=== PATIENT | female | born 1995 | race Caucasian/White ===

== ENCOUNTER → 2017-11-18 12:38 | Outpatient (CLI) | payer MEDICAID, SELFPAY ==
[2017-11-18 12:56] LABS: HCT 38.5 % (36.0-46.0); HGB 12.6 g/dL (12.0-15.5); Mean Corp. HGB Concentration 32.7 g/dL (32.0-36.0); Mean Corpuscular Hemoglobin 29.9 pg (27.0-33.0); Mean Corpuscular Volume 91.4 fL (80-95); Mean Platelet Volume 9.8 fL (8.0-11.0); Platelet Count 276 x1000/uL (130-400); RBC 4.21 m/cumm (4.00-5.20); RBC Distribution Width 12.5 % (11.7-14.6); White Blood Cell Count 9.45 k/cumm (4.4-10.8)
[2017-11-18 14:09] LABS: ALT 25 U/L (12-78); AST 18 U/L (15-37); Alkaline Phosphatase 88 U/L (46-116); Anion Gap 8.5 mmol/L (3-11); BUN 9 mg/dL (7-18); Bilirubin, Total 0.4 mg/dL (0.2-1.0); CO2 28.5 mmol/L (21.0-32.0); Calcium 9.4 mg/dL (8.5-10.1); Chloride 104 mmol/L (98-107); Glucose 93 mg/dL (70-100); Potassium 3.8 mmol/L (3.5-5.1); Sodium 141 mmol/L (136-145); TSH (W/Ref FT4) 1.33 uIU/mL (0.358-3.74); Total Protein 7.7 g/dL (6.4-8.2)
[2017-11-18 14:52] LABS: Hemoglobin A1C 5.5 % (4.5-6.2)
== END ==
PROVIDERS: PCP Specialist/Technologist Athletic Trainer; Visit Provider Nurse Practitioner Family
DX: E16.2 Hypoglycemia, unspecified (principal); R53.83 Other fatigue; E03.9 Hypothyroidism, unspecified
CPT/HCPCS: 36415; 80053; 85027; 83036; 84443

== ENCOUNTER 2017-11-26 01:03 | Outpatient (CLI) | payer MEDICAID, SELFPAY ==
--- NOTE | 2017-11-26 10:35 | DI.MRI_ITS ---
SYMPTOMS/DIAGNOSIS: SEIZURE DISORDER, R56.9, DIZZINESS, R42 MRI OF THE BRAIN: MRI of the brain was performed according to the seizure protocol. The examination was conducted according to the usual protocol. Review of the multi planar sequences reveals no signal abnormality involving the infra/ supratentorial portions of the brain. The ventricles are normal and a normal flow void is noted in the carotid vessels. SUMMARY: Normal Brain MRI.
== END 2017-11-26 01:23 ==
PROVIDERS: PCP Specialist/Technologist Athletic Trainer; Visit Provider Nurse Practitioner Family
DX: R56.9 Unspecified convulsions (principal); R42 Dizziness and giddiness
CPT/HCPCS: 70551

== ENCOUNTER 2017-12-02 12:14 | Outpatient (REF) | payer MEDICAID, SELFPAY ==
[2017-12-02 22:20] LABS: Vitamin B12 641 pg/mL (193-986)
== END 2017-12-02 12:34 ==
LOC: NCHCN 12:14
PROVIDERS: PCP Specialist/Technologist Athletic Trainer; Visit Provider Nurse Practitioner Family
DX: R20.2 Paresthesia of skin (principal); M54.5 Low back pain; R42 Dizziness and giddiness; R56.9 Unspecified convulsions
CPT/HCPCS: 82607

== ENCOUNTER 2017-12-25 09:36 | Emergency (ER) | payer MEDICAID, SELFPAY ==
[2017-12-25 09:38] VITALS: BP 136/66; PULSE 106; RESP 18; TEMP 37; O2SAT 98
--- NOTE | 2017-12-25 09:55 | W.ED.GENAD ---
Discharge Plan Disposition Patient Disposition: HOME Condition: Good Discharge Details Chief Complaint: Seizure Clinical Impression: Seizure Primary Care Provider: Stalin Newell ED Provider: Juice Munoz Home Meds and New Rx's Prescriptions: No Action gabapentin 300 mg Capsule 1 cap PO TID RF: 0 Discharge Instructions Instructions: Recurrent Seizures in Adults (ED) Additional Instructions: Please follow-up with your neurologist as soon as possible. If you notice any worsening of your symptoms, or any new symptoms such as vomiting, diarrhea, fever, chills, shortness of breath, chest pain, numbness, weakness, or fainting , please return immediately to the emergency department for reevaluation. Please follow up with your primary care provider as soon as possible for reassessment and reevaluation. As always, it was a pleasure participating in your medical care today. You should not drive, operate machinery, climb heights (such as a ladder), swim, or bathe alone or do anything else which could be dangerous if you would have another seizure. Please abide by this for the next 6 months or until cleared by a physician. Referrals: Leann Lester MD [ [facility] STAFF PHYSICIAN] - Medical Decision Making This is a pleasant 21-year-old female with a past medical history of seizures for which she takes gabapentin. She presents today for seizure. It was similar to her previous seizures. No other red flags of recent infection, trauma, alcohol, or other abnormalities. She states she does feel slightly sleepier than normal. She does appear dry on physical exam with dry mucous membranes. We will give 1 L of normal saline, evaluate for any significant electrolyte abnormality. I feel she will be safe for discharge pending laboratory workup. 11:30 AM Patient's laboratory workup has returned relatively benign. No significant abnormalities. Patient has completely returned to her normal neurologic baseline and demonstrates no acute neurologic deficits. I feel that her seizure was a simple seizure similar to her regular ones. She is feeling better after the rehydration. I feel she can be safely discharged home with close follow-up with her neurologist. I have extensively reviewed the treatment plan and discharge instructions with the patient. I have addressed all patient concerns at this time. The patient was made aware of what symptoms to monitor for that would warrant a return to the emergency department. Discussed the plan with the patient, they demonstrate verbal understanding and agreement with our assessment and plan at this time. HPI General Date/Time Provider Initiated Documentation: 12/25/17 09:52. HPI Narrative: This is a 21-year-old female with a past medical history of seizures and rheumatoid arthritis and lupus who takes gabapentin for her seizures. She presents today for evaluation of seizure. She has seizures once every few weeks to once every month. She sees Dr. Uribe. She states that less than 1 hour prior to arrival she had a seizure that lasted 3.5 minutes. She did not hit her head, she did not suffer any trauma. 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 She had no bowel or bladder incontinence. She denies any headache, chest pain or abdominal pain. She has not missed any doses of gabapentin she denies any symptoms of fever, chills, cough, shortness of breath, hematuria or dysuria or fever or chills. She states that the seizure was normal in nature to what she classically experiences. However she does feel slightly sleepier than normal. Patient denies any other medical complaints. She denies any recent alcohol use or medication changes. She has no other complaints at this time. She denies any recent pertinent surgeries. She does not take control. She denies any IV or illicit drug use or pertinent family history. Related Data Home Medications Medication Instructions Recorded Confirmed gabapentin 1 cap PO TID 12/25/17 12/25/17 Allergies Allergy/AdvReac Type Severity Reaction Status Date / Time aspirin Allergy Severe Anaphylaxsi Unverified 12/25/17 09:41 s Penicillins Allergy Severe Unverified 12/25/17 09:41 lamotrigine [From Lamictal] Allergy Intermediate Unverified 12/25/17 09:41 General Stated Complaint: Seizure MENDY: 3 Review of Systems Review of Systems All systems reviewed & are unremarkable except as noted in HPI and below PFSH Family History Other Bladder cancer Cervical cancer Diabetes Ovarian cancer Seizure Medical History Asperger's disorder Epilepsy Hypoglycemia Hypothyroidism Lesion of brain Memory impairment Seizure Social History Smoking/Tobacco Use Status: Never Surgical History section Exam Narrative Exam Narrative: 1.Const: Well-nourished, Well-developed, appearing stated age 2.Eyes: PERRL, no conjunctival injection, and symmetrical lids. 3.ENT: Atraumatic external nose and ears. Dry MM. Neck: Symmetric, trachea midline, No thyromegaly. There is no evidence of raccoon eyes, gil sign, CSF rhinorrhea, mastoid tenderness, cranial crepitus, hemotympanum, exophthalmos, or hyphema. Patient demonstrates intact dentition with no signs of tooth avulsion or fracture, no signs of jaw deformity, no evidence of a LeFort's fracture, with an intact palate, nose and orbital region. There is no evidence of a nasal septal hematoma. No proptosis. Jaw closes symmetrically. Airway is clear. Patient demonstrates good movement of cervical neck. There is no nuchal rigidity, no nuchal tenderness. Patient is able to flex the neck without any difficulty or significant pain. Negative Kernig's and Brudzinski sign. 4.CVS: +S1/S2, No murmurs or gallops. Peripheral pulses 2+ and equal in all extremities. Brisk capillary refill in all extremities. 5.RESP: Unlabored respiratory effort. Clear to auscultation bilaterally. No wheezes rales or rhonchi 6.GI: Soft, Nontender/Nondistended, No hepatosplenomegaly. No guarding or rebound. 7.MSK: Normocephalic/Atraumatic, Extremities w/o deformity or ttp No cyanosis or clubbing, Normal movement of all extremities 8.Skin: Warm, Dry. No rashes or lesions. 9.Neuro: jig inspector II-XII grossly intact. Sensation grossly intact, no focal neurologic deficits. All 6 cardinal planes of vision or fully intact. No evidence of rotatory or vertical nystagmus. The patient demonstrated a normal ofgjkg-ypqp-tcxxni, good dexterity. There was no evidence of dysdiadochokinesia. Patient was able to ambulate without difficulty. There was no wide-based gait. Romberg, and embj-wz-guls are both normal on testing. Sensation was intact bilaterally as well as muscle strength bilaterally for all extremities. Patient was able to verbalize butter cup with no slurring, or miss pronunciation. 10.Psych: (AAO) x3. Appropriate mood and affect Course Vital Signs Temperature 37.0 C 12/25/17 09:38 Pulse 106 H 12/25/17 09:38 Respiratory Rate 18 12/25/17 09:38 Blood Pressure 136/66 12/25/17 09:38 Pulse Oximetry 98 12/25/17 09:38 Temperature 37.0 C 12/25/17 09:38 Temperature Source Temporal Artery Scan 12/25/17 09:38 Pulse 106 H 12/25/17 09:38 Respiratory Rate 18 12/25/17 09:38 Blood Pressure 136/66 12/25/17 09:38 Pulse Oximetry 98 12/25/17 09:38 Oxygen Delivery Method Room Air 12/25/17 09:38 Oxygen Flow Rate 0 12/25/17 09:38 Pain Level 0 12/25/17 09:38
--- NOTE | 2017-12-25 10:01 | ED.GENADUL_ITS ---
Discharge Plan Disposition Patient Disposition: HOME Condition: Good Discharge Details Chief Complaint: Seizure Clinical Impression: Seizure Primary Care Provider: Stalin Newell ED Provider: Juice Munoz Home Meds and New Rx's Prescriptions: No Action gabapentin 300 mg Capsule 1 cap PO TID RF: 0 Discharge Instructions Instructions: Recurrent Seizures in Adults (ED) Additional Instructions: Please follow-up with your neurologist as soon as possible. If you notice any worsening of your symptoms, or any new symptoms such as vomiting, diarrhea, fever, chills, shortness of breath, chest pain, numbness, weakness, or fainting , please return immediately to the emergency department for reevaluation. Please follow up with your primary care provider as soon as possible for reassessment and reevaluation. As always, it was a pleasure participating in your medical care today. You should not drive, operate machinery, climb heights (such as a ladder), swim , or bathe alone or do anything else which could be dangerous if you would have another seizure. Please abide by this for the next 6 months or until cleared by a physician. Referrals: Leann Lester MD [ [facility] STAFF PHYSICIAN] - Medical Decision Making This is a pleasant 21-year-old female with a past medical history of seizures for which she takes gabapentin. She presents today for seizure. It was similar to her previous seizures. No other red flags of recent infection, trauma, alcohol, or other abnormalities. She states she does feel slightly sleepier than normal. She does appear dry on physical exam with dry mucous membranes. We will give 1 L of normal saline, evaluate for any significant electrolyte abnormality. I feel she will be safe for discharge pending laboratory workup. 11:30 AM Patient's laboratory workup has returned relatively benign. No significant abnormalities. Patient has completely returned to her normal neurologic baseline and demonstrates no acute neurologic deficits. I feel that her seizure was a simple seizure similar to her regular ones. She is feeling better after the rehydration. I feel she can be safely discharged home with close follow-up with her neurologist. I have extensively reviewed the treatment plan and discharge instructions with the patient. I have addressed all patient concerns at this time. The patient was made aware of what symptoms to monitor for that would warrant a return to the emergency department. Discussed the plan with the patient, they demonstrate verbal understanding and agreement with our assessment and plan at this time. HPI General Date/Time Provider Initiated Documentation: 12/25/17 09:52 . HPI Narrative: This is a 21-year-old female with a past medical history of seizures and rheumatoid arthritis and lupus who takes gabapentin for her seizures. She presents today for evaluation of seizure. She has seizures once every few weeks to once every month. She sees Dr. Uribe. She states that less than 1 hour prior to arrival she had a seizure that lasted 3.5 minutes. She did not hit her head, she did not suffer any trauma. 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 She had no bowel or bladder incontinence. She denies any headache, chest pain or abdominal pain. She has not missed any doses of gabapentin she denies any symptoms of fever, chills, cough, shortness of breath, hematuria or dysuria or fever or chills. She states that the seizure was normal in nature to what she classically experiences. However she does feel slightly sleepier than normal. Patient denies any other medical complaints. She denies any recent alcohol use or medication changes. She has no other complaints at this time. She denies any recent pertinent surgeries. She does not take control. She denies any IV or illicit drug use or pertinent family history. Related Data Home Medications Medication Instructions Recorded Confirmed gabapentin 1 cap PO TID 12/25/17 12/25/17 Allergies Allergy/AdvReac Type Severity Reaction Status Date / Time aspirin Allergy Severe Anaphylaxsi Unverified 12/25/17 09:41 s Penicillins Allergy Severe Unverified 12/25/17 09:41 lamotrigine [From Lamictal] Allergy Intermediate Unverified 12/25/17 09:41 General Stated Complaint: Seizure MENDY: 3 Review of Systems Review of Systems All systems reviewed & are unremarkable except as noted in HPI and below PFSH Family History Other Bladder cancer Cervical cancer Diabetes Ovarian cancer Seizure Medical History Asperger's disorder Epilepsy Hypoglycemia Hypothyroidism Lesion of brain Memory impairment Seizure Social History Smoking/Tobacco Use Status: Never Surgical History section Exam Narrative Exam Narrative: 1.Const: Well-nourished, Well-developed, appearing stated age 2.Eyes: PERRL, no conjunctival injection, and symmetrical lids. 3.ENT: Atraumatic external nose and ears. Dry MM. Neck: Symmetric, trachea midline, No thyromegaly. There is no evidence of raccoon eyes, gil sign, CSF rhinorrhea, mastoid tenderness, cranial crepitus, hemotympanum, exophthalmos , or hyphema. Patient demonstrates intact dentition with no signs of tooth avulsion or fracture, no signs of jaw deformity, no evidence of a LeFort's fracture, with an intact palate, nose and orbital region. There is no evidence of a nasal septal hematoma. No proptosis. Jaw closes symmetrically. Airway is clear. Patient demonstrates good movement of cervical neck. There is no nuchal rigidity, no nuchal tenderness. Patient is able to flex the neck without any difficulty or significant pain. Negative Kernig's and Brudzinski sign. 4.CVS: +S1/S2, No murmurs or gallops. Peripheral pulses 2+ and equal in all extremities. Brisk capillary refill in all extremities. 5.RESP: Unlabored respiratory effort. Clear to auscultation bilaterally. No wheezes rales or rhonchi 6.GI: Soft, Nontender/Nondistended, No hepatosplenomegaly. No guarding or rebound. 7.MSK: Normocephalic/Atraumatic, Extremities w/o deformity or ttp No cyanosis or clubbing, Normal movement of all extremities 8.Skin: Warm, Dry. No rashes or lesions. 9.Neuro: audit specialist II-XII grossly intact. Sensation grossly intact, no focal neurologic deficits. All 6 cardinal planes of vision or fully intact. No evidence of rotatory or vertical nystagmus. The patient demonstrated a normal tydbhp-fgja-yrrocd, good dexterity. There was no evidence of dysdiadochokinesia. Patient was able to ambulate without difficulty. There was no wide-based gait. Romberg, and vvzs-xx-ncax are both normal on testing. Sensation was intact bilaterally as well as muscle strength bilaterally for all extremities. Patient was able to verbalize butter cup with no slurring, or miss pronunciation. 10.Psych: (AAO) x3. Appropriate mood and affect Course Vital Signs Temperature 37.0 C 12/25/17 09:38 Pulse 106 H 12/25/17 09:38 Respiratory Rate 18 12/25/17 09:38 Blood Pressure 136/66 12/25/17 09:38 Pulse Oximetry 98 12/25/17 09:38 Temperature 37.0 C 12/25/17 09:38 Temperature Source Temporal Artery Scan 12/25/17 09:38 Pulse 106 H 12/25/17 09:38 Respiratory Rate 18 12/25/17 09:38 Blood Pressure 136/66 12/25/17 09:38 Pulse Oximetry 98 12/25/17 09:38 Oxygen Delivery Method Room Air 12/25/17 09:38 Oxygen Flow Rate 0 12/25/17 09:38 Pain Level 0 12/25/17 09:38
[2017-12-25 10:20] LABS: Bilirubin Negative (Negative); Blood Negative (Negative); Clarity Clear; Glucose Negative (Negative); Ketones Negative (Negative); Leukocyte Esterase Negative (Negative); Nitrite Negative (Negative); Specific Gravity <= 1.005 (1.005-1.025); Urobilinogen 0.2 EU/dL (Up TO 0.2); pH 6.5 (5-8)
[2017-12-25] MEDS: Normal Saline 1,000 ML 1000 ML IV (10:24)
[2017-12-25 10:29] LABS: Abs Immature Grans 0.03 k/cumm (0.0-0.09); Absolute Basophil Count 0.04 k/cumm (0.0-0.2); Absolute Eosinophil Count 0.08 k/cumm (0.0-0.7); Absolute Monocyte Count 1.02 k/cumm (0.11-0.7); Absolute Neutrophil Count 9.31 k/cumm (1.2-6.7); Basophils % 0.3; Eosinophils % 0.7; HCT 37.6 % (36.0-46.0); HGB 12.1 g/dL (12.0-15.5); Immature Grans % 0.3; Mean Corp. HGB Concentration 32.2 g/dL (32.0-36.0); Mean Corpuscular Hemoglobin 29.8 pg (27.0-33.0); Mean Corpuscular Volume 92.6 fL (80-95); Monocytes % 8.7; Platelet Count 234 x1000/uL (130-400); RBC 4.06 m/cumm (4.00-5.20); RBC Distribution Width 12.7 % (11.7-14.6); White Blood Cell Count 11.78 k/cumm (4.4-10.8)
[2017-12-25 10:44] LABS: ALT 34 U/L (12-78); AST 21 U/L (15-37); Albumin 4.1 g/dL (3.4-5.0); Alkaline Phosphatase 79 U/L (46-116); Anion Gap 8.6 mmol/L (3-11); BUN 13 mg/dL (7-18); Bilirubin, Total 0.4 mg/dL (0.2-1.0); CO2 30.4 mmol/L (21.0-32.0); CREATININE 0.84 mg/dL (0.55-1.02); Calcium 9.3 mg/dL (8.5-10.1); Chloride 102 mmol/L (98-107); Glucose 87 mg/dL (70-100); Potassium 3.7 mmol/L (3.5-5.1); Sodium 141 mmol/L (136-145); Total Protein 7.7 g/dL (6.4-8.2)
[2017-12-25 11:54] VITALS: BP 119/64; PULSE 90; RESP 16; TEMP 37.1; O2SAT 100
== END 2017-12-25 11:55 | disposition home or self-care (01) ==
PROVIDERS: Emergency Provider Student in an Organized Health Care Education/Training Program; PCP Specialist/Technologist Athletic Trainer
DX: G40.909 Epilepsy, unspecified, not intractable, without status epilepticus (principal)
CPT/HCPCS: 36415; 80053; 81025; 96360; 99284; 81003; 85025

== ENCOUNTER 2017-12-25 17:34 | Inpatient (IN) | payer MEDICAID, SELFPAY ==
[2017-12-25] VITALS (64 sets, daily range): BP systolic 91–126; BP diastolic 42–62; PULSE 68–130; RESP 8–26; TEMP 36.3–39.1; O2SAT 93–97
[2017-12-25] MEDS: Normal Saline 1,000 ML 1000 ML IV ×2 (18:00→19:00)
[2017-12-25 18:06] LABS: Abs Immature Grans 0.05 k/cumm (0.0-0.09); Absolute Basophil Count 0.03 k/cumm (0.0-0.2); Absolute Eosinophil Count 0.03 k/cumm (0.0-0.7); Absolute Monocyte Count 1.43 k/cumm (0.11-0.7); Basophils % 0.2; Eosinophils % 0.2; HCT 37.2 % (36.0-46.0); HGB 12.3 g/dL (12.0-15.5); Immature Grans % 0.4; Lactate-non-spesis 0.9 mmol/L (0.6-1.4); Lymphocytes % 8.5; Mean Corp. HGB Concentration 33.1 g/dL (32.0-36.0); Mean Corpuscular Hemoglobin 30.3 pg (27.0-33.0); Mean Corpuscular Volume 91.6 fL (80-95); Mean Platelet Volume 10.2 fL (8.0-11.0); Monocytes % 10.1; Neutrophils % 80.6; Platelet Count 243 x1000/uL (130-400); RBC 4.06 m/cumm (4.00-5.20); RBC Distribution Width 12.7 % (11.7-14.6); White Blood Cell Count 14.15 k/cumm (4.4-10.8)
--- NOTE | 2017-12-25 18:15 | DI.CT_ITS ---
SYMPTOMS/DIAGNOSIS: SEIZURE CT BRAIN, NONCONTRAST: Comparison MRI is 11/26/17. There is a normal ortega-white matter differentiation. In the right frontal lobe, there is a 0.4 cm focus of increased density. No mass effect is seen. The ventricles are intact. The basilar cisterns are patent. No extra-axial hemorrhage is identified. The visualized paranasal sinuses are clear. The mastoid air cells are well pneumatized. The calvarium is intact. IMPRESSION: A 0.4 cm hyperdense focus in the right frontal lobe. This does not have a correlate on the MRI of the brain from 11/26/17. Intraparenchymal hemorrhage should be considered. Intraparenchymal calcification cannot be entirely excluded. Correlation with prior CTs if available is recommended.
[2017-12-25 18:22] LABS: ALT 33 U/L (12-78); AST 21 U/L (15-37); Albumin 4.1 g/dL (3.4-5.0); Alkaline Phosphatase 78 U/L (46-116); Anion Gap 10.6 mmol/L (3-11); BUN 10 mg/dL (7-18); Bilirubin, Total 0.6 mg/dL (0.2-1.0); CO2 27.4 mmol/L (21.0-32.0); CREATININE 0.86 mg/dL (0.55-1.02); Calcium 8.7 mg/dL (8.5-10.1); Chloride 100 mmol/L (98-107); Glucose 116 mg/dL (70-100); Potassium 3.6 mmol/L (3.5-5.1); Sodium 138 mmol/L (136-145)
[2017-12-25] MEDS: Acetaminophen 500 MG TAB 1000 MG PO (18:24)
[2017-12-25] MEDS: CIPROFLOXACIN 400 MG/200 ML BAG 200 MG IVPB (18:25)
[2017-12-25] MEDS: VANCOMYCIN 1,500 MG in Normal Saline 500 ML 333.3333 MG IVPB (18:25)
--- NOTE | 2017-12-25 19:00 | DI.VRAD_ITS ---
EXAM: CT Head Without Intravenous Contrast CLINICAL HISTORY: 21 years old, female; Signs and symptoms; Fever; Patient HX: Known seizure disorder, recent fever of 103 degrees f. TECHNIQUE: Axial computed tomography images of the head/brain without intravenous contrast. All CT scans at this facility use at least one of these dose optimization techniques: automated exposure control; mA and/or kV adjustment per patient size (includes targeted exams where dose is matched to clinical indication); or iterative reconstruction. Coronal and sagittal reformatted images were created and reviewed. COMPARISON: MR brain wo 11/26/2017 4:54 PM FINDINGS: Brain: 0.4 cm focus of hyperdensity (80 HU) within the right periventricular white matter. No intracranial hemorrhage or extra-axial fluid collection. No evidence of mass effect or midline shift. Bonilla-white matter differentiation is normal. Ventricles: Unremarkable. Bones/joints: Unremarkable. No acute fracture. Soft tissues: Unremarkable. Sinuses: Unremarkable as visualized. No acute sinusitis. Mastoid air cells: Unremarkable as visualized. No mastoid effusion. IMPRESSION: 0.4 cm focus of hyperdensity (80 HU) within the right periventricular white matter. No similar finding was seen on prior MR brain, raising suspicion for concern of punctate hemorrhage. Recommend correlation with prior CTs if available as it is possible this could also represent a calcification, however the density of this lesion could still also represent blood. THIS REPORT CONTAINS FINDINGS THAT MAY BE CRITICAL TO PATIENT CARE. The findings were verbally communicated via telephone conference with Isaiah Negro NP at 6:48 PM EDT on 12/25/2017. The findings were acknowledged and understood. Dictated and Authenticated by: Rashaad Brannon MD. Ordering:MATTHIAS MONTANA MD
[2017-12-25 19:40] LABS: Glucose (CSF) 66 mg/dL (40-70); Total Protein (CSF) 35 mg/dL (15-45)
[2017-12-25 19:47] LABS: Clarity Clear; RBC 2 /mm3 (0-5); Tube # 4; WBC 3 /mm3 (0-5); Xanthochromia Absent
[2017-12-25] MEDS: diphenhydrAMINE 50 MG/ML VIAL (19:54)
[2017-12-25] MEDS: Ibuprofen 800 MG TAB (19:56)
--- NOTE | 2017-12-25 20:00 | DI.RAD_ITS ---
SYMPTOMS/DIAGNOSIS: EVALUATE FOR INFECTION CHEST X-RAY, PORTABLE AP VIEW: There are no priors for comparison. The heart is normal in size. The lungs are clear. The mediastinal structures and pleura appear intact. IMPRESSION: Normal chest.
--- NOTE | 2017-12-25 20:04 | NUR.NOTE ---
Nursing Note: Patient has complaints of generalized itching with no SOB, difficulty swallowing or funny feelings in her mouth. She has no signs of hives or rashes. Benadryl given with +effect
--- NOTE | 2017-12-25 20:16 | W.ED.GENAD ---
Discharge Plan Disposition Patient Disposition: [facility] INPATIENT Condition: Stable Discharge Details Chief Complaint: Seizure Primary Care Provider: Stalin Newell ED Provider: Juice Munoz Home Meds and New Rx's Prescriptions: No Action gabapentin 300 mg Capsule 1 cap PO TID RF: 0 multivitamin Tablet 1 tab PO DAILY RF: 0 ibuprofen 200 mg Capsule 800 mg PO BID RF: 0 cholecalciferol (vitamin D3) [Vitamin D3] 1,000 unit Capsule 1 tab PO DAILY RF: 0 Medical Decision Making This is a 21-year-old female with a past medical history of seizures for which she takes gabapentin and no other significant medical problems. She presents today for evaluation of fever, neck stiffness, and 5 subsequent seizures at home immediately prior to arrival. She was here in the emergency department earlier today and had a typical seizure for herself this morning while at work. She had no trauma, did not hit her head, denies any other abnormality. Her neurologic exam vital signs and laboratory workup at that time were all benign. Currently she demonstrates no neurologic deficits but does appear drowsy, she is notably tachycardic in the 120s, febrile at 103, and is complaining of notable neck stiffness and pain, with associated positive Kernig's and Brudzinski's sign. Urinalysis was normal on her visit this morning, we will get a portable chest x-ray, perform a lumbar puncture, and start antibiotics for potential bacterial meningitis. The patient does have a history of a severe cardiac arrest allergy to penicillins, we will avoid this and go with vancomycin and Cipro. EKG 17: 58 Rate 126, RI 146, QTc 452, sinus tachycardia, no ST elevations or depressions, no T wave inversions, no Q waves. 8:[address] scan was performed and per virtual radiology demonstrates 0.4 cm focus of hyperdensity within the right. White white matter. No similar findings was seen on prior MR of the brain, raising suspicion for concern for punctate hemorrhage. Patient with prior CTs if available as it is possible this could also represent a calcification, however the density of this lesion could still also represent blood. No evidence of significant mass lesion present. Patient's laboratory workup does demonstrate an increase in her white count from 11-14. No bandemia. Lumbar puncture was performed after CT results were confirmed and was successful. No complications during procedure. Lumbar puncture results demonstrate 3 WBCs and 2 RBCs in the fourth tube. Glucose was normal, and total protein was also normal. Xanthochromia was absent. Patient has been rehydrated and her heart rate is coming down to the 110s at this time. Fever is decreasing. Patient continues to respond normally to questions, demonstrates no focal neurologic abnormalities. We do not have any neurology here in the hospital until Friday, the patient will require transfer. We will contact [facility] for potential transfer as that is where she normally has her neurologic workups. 9:16 PM [facility] is called back and I discussed the case with and Dr. Gonzales of [facility] neurology. I discussed the case with them including the physical exam findings and the patient's current clinical scenario. At this time there are no beds for transfer however they do recommend transfer in the morning when a bed becomes available. They agree with the current plan and recommend continued vancomycin and Cipro. They also recommend testing for HSV 1 and 2, starting acyclovir 800 mg every 8 hours. Additionally they recommend 1 g of Keppra to be given now and then followed by 500 mg twice daily. Also recommend MRI with and without contrast with SWI imaging for further evaluation of the right periventricular white matter lesion. We will add these tests, and medications.. 9:27 PM I discussed the case with Dr. Jean, he agrees with the assessment and plan. Patient will be admitted to the floor for further management. I have extensively reviewed the treatment plan with the patient. I have addressed all patient concerns at this time. I have also discussed the plan with the admitting physician and they agree with the current assessment and plan and have agreed to assume responsibility for the patient. All parties demonstrate verbal understanding and agreement with our assessment and plan at this time. Procedure: Lumbar Puncture Indication: Altered Mental Status/Headache A time-out was completed verifying correct patient, procedure, site, positioning, and special equipment if applicable. The patient was placed in the right lateral decubitus position in a semi- position with help from the nursing staff. The area was cleansed and draped in usual sterile fashion. 1% lidocaine was used anesthetize the surrounding skin area. A 20-gauge 3.5-inch spinal needle was placed in the L3-L4 interspace. Clear cerebral spinal fluid was obtained. Four tubes were filled with 4 mL of CSF. These were sent for the usual tests, including 1 tube to be held for further analysis if needed. Estimated Blood Loss: 0ml The patient tolerated the procedure well and there were no complications. HPI General Date/Time Provider Initiated Documentation: 12/25/17 17:54. HPI Narrative: This is a 21-year-old female with a past medical history of seizures for which she takes gabapentin. He presents today for evaluation of fever, chills, headache, neck pain and stiffness, and seizures. The patient was here hours hours ago, and seen and assessed. At that time she had had a seizure in the morning while at work. It was cory to her normal seizures with no atypical component. At that time her vital signs demonstrated no fever, tachycardia, blood pressure abnormality, per documentation her physical exam showed no signs of neck stiffness, she had no complaint of headache, and her laboratory workup demonstrated a benign urinalysis with no signs of infection, a benign CBC with a white count of 11, no electrolyte abnormalities. After rehydration per documentation the patient felt that she was at her normal baseline and was requesting to go home. The patient was discharged with instructions for follow-up. Per the patient's history she went home and took a nap. She awoke in the early evening and complained to her significant other of headache, neck stiffness, and warmth. She had a temperature of 103 at home. She then had 5 subsequent seizures which were tonic-clonic in her normal form. She was then immediately brought to the ER for further evaluation. Currently she complains of headache, neck stiffness, and extreme fatigue. She denies any vomiting or diarrhea. She denies any bowel or bladder incontinence. She denies any weakness. She has no other complaints at this time. She did not take any medications, use any IV or illicit drugs, or do anything out of the ordinary at home during the time between HER 2 ER visits. Related Data Home Medications Medication Instructions Recorded Confirmed cholecalciferol (vitamin D3) 1 tab PO DAILY 12/25/17 12/25/17 [Vitamin D3] gabapentin 1 cap PO TID 12/25/17 12/25/17 ibuprofen 800 mg PO BID 12/25/17 12/25/17 multivitamin 1 tab PO DAILY 12/25/17 12/25/17 Allergies Allergy/AdvReac Type Severity Reaction Status Date / Time aspirin Allergy Severe Anaphylaxsi Unverified 12/25/17 17:44 s Penicillins Allergy Severe Unverified 12/25/17 17:44 lamotrigine [From Lamictal] Allergy Intermediate Unverified 12/25/17 17:44 General Stated Complaint: Seizure MENDY: 2 Review of Systems Review of Systems All systems reviewed & are unremarkable except as noted in HPI and below PFSH Family History Other Bladder cancer Cervical cancer Diabetes Ovarian cancer Seizure Medical History Asperger's disorder Epilepsy Hypoglycemia Hypothyroidism Lesion of brain Memory impairment Seizure Social History Smoking/Tobacco Use Status: Never Surgical History section Exam Narrative Exam Narrative: 1.Const: Well-nourished, Well-developed, appearing stated age 2.Eyes: PERRL, no conjunctival injection, and symmetrical lids. Bedside ultrasound demonstrates an optic nerve diameter of 5.2 mm in the left eye. 3.ENT: Atraumatic external nose and ears. Moist MM. Neck: Symmetric, trachea midline, No thyromegaly. There is no evidence of raccoon eyes, gil sign, CSF rhinorrhea, mastoid tenderness, cranial crepitus, hemotympanum, exophthalmos, or hyphema. Currently the patient demonstrates notable neck tenderness, stiffness, and pain with flexion. Positive Kernig's and Brudzinski's on exam. 4.CVS: +S1/S2, No murmurs or gallops. Peripheral pulses 2+ and equal in all extremities. Brisk capillary refill in all extremities. 5.RESP: Unlabored respiratory effort. Clear to auscultation bilaterally. No wheezes rales or rhonchi 6.GI: Soft, Nontender/Nondistended, No hepatosplenomegaly. No guarding or rebound. 7.MSK: Normocephalic/Atraumatic, Extremities w/o deformity or ttp No cyanosis or clubbing, Normal movement of all extremities 8.Skin: Warm, Dry. No rashes or lesions. 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 Sensation grossly intact, no focal neurologic deficits. Patient is able to move all extremities, 5 out of 5 strength in all extremities. She responds appropriately to all questions. Normal rapid alternating movements, no appreciable deficits or significant abnormalities. 10.Psych: (AAO) x3. Appropriate mood and affect, however the patient does appear drowsy. Course Vital Signs Temperature 39.1 C H 12/25/17 17:39 Pulse 130 H 12/25/17 17:39 Respiratory Rate 18 12/25/17 17:39 Blood Pressure 126/61 12/25/17 17:39 Pulse Oximetry 96 12/25/17 17:39 Temperature 38.4 C H 12/25/17 19:56 Temperature Source Skin 12/25/17 19:50 Pulse 118 H 12/25/17 19:01 Pulse 115 H 12/25/17 19:02 Respiratory Rate 8 L 12/25/17 19:01 Respiratory Effort 12/25/17 19:12 Respiratory Depth Normal 12/25/17 19:12 Respiratory Pattern Normal 12/25/17 19:12 Blood Pressure 102/48 L 12/25/17 19:01 Blood Pressure Mean 60 12/25/17 19:01 Pulse Oximetry 96 12/25/17 19:02 Oxygen Delivery Method Room Air 12/25/17 17:39 Oxygen Flow Rate 0 12/25/17 17:39 Lab/Test Results Lab/Test Results: 12/25/17 18:50 Cerebrospinal Fluid Body Fluid Culture - Pending 12/25/17 18:50 Cerebrospinal Fluid Gram Stain - Final 12/25/17 18:33 Blood Blood Culture - Pending 12/25/17 17:50 Blood Blood Culture - Pending Laboratory Tests Range/Units 12/25/17 12/25/17 12/25/17 17:50 17:50 17:50 WBC (4.4-10.8) k/cumm 14.15 H RBC (4.00-5.20) m/cumm 4.06 Hgb (12.0-15.5) g/dL 12.3 Hct (36.0-46.0) % 37.2 MCV (80-95) fL 91.6 MCH (27.0-33.0) pg 30.3 MCHC (32.0-36.0) g/dL 33.1 RDW (11.7-14.6) % 12.7 Plt Count (130-400) x1000/uL 243 MPV (8.0-11.0) fL 10.2 Immature Gran % 0.4 Neutrophils % 80.6 Lymphocytes % 8.5 Monocytes % 10.1 Eosinophils % 0.2 Basophils % 0.2 Absolute Neutrophils (1.2-6.7) k/cumm 11.40 H Absolute Lymphocytes (1.2-3.4) k/cumm 1.20 Absolute Monocytes (0.11-0.7) k/cumm 1.43 H Absolute Eosinophils (0.0-0.7) k/cumm 0.03 Absolute Basophils (0.0-0.2) k/cumm 0.03 Xanthochromia Sodium (136-145) mmol/L 138 Potassium (3.5-5.1) mmol/L 3.6 Chloride (98-107) mmol/L 100 Carbon Dioxide (21.0-32.0) mmol/L 27.4 Anion Gap (3-11) mmol/L 10.6 BUN (7-18) mg/dL 10 Creatinine (0.55-1.02) mg/dL 0.86 Estimated GFR/1.73 m2 (mL/min/1.73m2) >= 60.00 Glucose (70-100) mg/dL 116 H Lactate (0.6-1.4) mmol/L 0.9 Calcium (8.5-10.1) mg/dL 8.7 Total Bilirubin (0.2-1.0) mg/dL 0.6 AST (15-37) U/L 21 ALT (12-78) U/L 33 Alkaline Phosphatase (46-116) U/L 78 Total Protein (6.4-8.2) g/dL 8.0 Albumin (3.4-5.0) g/dL 4.1 CSF Tube Number CSF Color CSF Clarity CSF WBC (0-5) /mm3 CSF RBC (0-5) /mm3 CSF Diff Comment CSF Glucose (40-70) mg/dL CSF Total Protein (15-45) mg/dL Range/Units 12/25/17 12/25/17 18:50 18:50 WBC (4.4-10.8) k/cumm RBC (4.00-5.20) m/cumm Hgb (12.0-15.5) g/dL Hct (36.0-46.0) % MCV (80-95) fL MCH (27.0-33.0) pg MCHC (32.0-36.0) g/dL RDW (11.7-14.6) % Plt Count (130-400) x1000/uL MPV (8.0-11.0) fL Immature Gran % Neutrophils % Lymphocytes % Monocytes % Eosinophils % Basophils % Absolute Neutrophils (1.2-6.7) k/cumm Absolute Lymphocytes (1.2-3.4) k/cumm Absolute Monocytes (0.11-0.7) k/cumm Absolute Eosinophils (0.0-0.7) k/cumm Absolute Basophils (0.0-0.2) k/cumm Xanthochromia Absent Sodium (136-145) mmol/L Potassium (3.5-5.1) mmol/L Chloride (98-107) mmol/L Carbon Dioxide (21.0-32.0) mmol/L Anion Gap (3-11) mmol/L BUN (7-18) mg/dL Creatinine (0.55-1.02) mg/dL Estimated GFR/1.73 m2 (mL/min/1.73m2) Glucose (70-100) mg/dL Lactate (0.6-1.4) mmol/L Calcium (8.5-10.1) mg/dL Total Bilirubin (0.2-1.0) mg/dL AST (15-37) U/L ALT (12-78) U/L Alkaline Phosphatase (46-116) U/L Total Protein (6.4-8.2) g/dL Albumin (3.4-5.0) g/dL CSF Tube Number 4 CSF Color Colorless CSF Clarity Clear CSF WBC (0-5) /mm3 3 CSF RBC (0-5) /mm3 2 CSF Diff Comment CSF Glucose (40-70) mg/dL 66 CSF Total Protein (15-45) mg/dL 35
[2017-12-25] MEDS: methylPREDNISolone SUCC 125 MG VIAL (20:21)
--- NOTE | 2017-12-25 20:25 | DI.VRAD_ITS ---
EXAM: XR Chest, 1 View CLINICAL HISTORY: 21 years old, female; Signs and symptoms; Fever TECHNIQUE: Frontal view of the chest. COMPARISON: No relevant prior studies available. FINDINGS: Lungs: Unremarkable. No consolidation. Pleural space: Unremarkable. No pneumothorax. Heart: Unremarkable. No cardiomegaly. Mediastinum: Unremarkable. Bones/joints: Unremarkable. IMPRESSION: No acute cardiopulmonary pathology. Dictated and Authenticated by: Rashaad Brannon MD. Ordering:MATTHIAS MONTANA MD
--- NOTE | 2017-12-25 20:33 | ED.GENADUL_ITS ---
Discharge Plan Disposition Patient Disposition: [facility] INPATIENT Condition: Stable Discharge Details Chief Complaint: Seizure Primary Care Provider: Stalin Newell ED Provider: Juice Munoz Home Meds and New Rx's Prescriptions: No Action gabapentin 300 mg Capsule 1 cap PO TID RF: 0 multivitamin Tablet 1 tab PO DAILY RF: 0 ibuprofen 200 mg Capsule 800 mg PO BID RF: 0 cholecalciferol (vitamin D3) [Vitamin D3] 1,000 unit Capsule 1 tab PO DAILY RF: 0 Medical Decision Making This is a 21-year-old female with a past medical history of seizures for which she takes gabapentin and no other significant medical problems. She presents today for evaluation of fever, neck stiffness, and 5 subsequent seizures at home immediately prior to arrival. She was here in the emergency department earlier today and had a typical seizure for herself this morning while at work. She had no trauma, did not hit her head, denies any other abnormality. Her neurologic exam vital signs and laboratory workup at that time were all benign. Currently she demonstrates no neurologic deficits but does appear drowsy, she is notably tachycardic in the 120s, febrile at 103, and is complaining of notable neck stiffness and pain, with associated positive Kernig's and Brudzinski's sign. Urinalysis was normal on her visit this morning , we will get a portable chest x-ray, perform a lumbar puncture, and start antibiotics for potential bacterial meningitis. The patient does have a history of a severe cardiac arrest allergy to penicillins, we will avoid this and go with vancomycin and Cipro. EKG 17: 58 Rate 126, W[place] 146, QTc 452, sinus tachycardia, no ST elevations or depressions, no T wave inversions, no Q waves. 8:[address] scan was performed and per virtual radiology demonstrates 0.4 cm focus of hyperdensity within the right. White white matter. No similar findings was seen on prior MR of the brain, raising suspicion for concern for punctate hemorrhage. Patient with prior CTs if available as it is possible this could also represent a calcification, however the density of this lesion could still also represent blood. No evidence of significant mass lesion present. Patient 's laboratory workup does demonstrate an increase in her white count from 11- 14. No bandemia. Lumbar puncture was performed after CT results were confirmed and was successful. No complications during procedure. Lumbar puncture results demonstrate 3 WBCs and 2 RBCs in the fourth tube. Glucose was normal, and total protein was also normal. Xanthochromia was absent. Patient has been rehydrated and her heart rate is coming down to the 110s at this time. Fever is decreasing. Patient continues to respond normally to questions, demonstrates no focal neurologic abnormalities. We do not have any neurology here in the hospital until Friday, the patient will require transfer. We will contact [facility] for potential transfer as that is where she normally has her neurologic workups. 9:16 PM [facility] is called back and I discussed the case with and Dr. Gonzales of [facility] neurology. I discussed the case with them including the physical exam findings and the patient's current clinical scenario. At this time there are no beds for transfer however they do recommend transfer in the morning when a bed becomes available. They agree with the current plan and recommend continued vancomycin and Cipro. They also recommend testing for HSV 1 and 2, starting acyclovir 800 mg every 8 hours. Additionally they recommend 1 g of Keppra to be given now and then followed by 500 mg twice daily. Also recommend MRI with and without contrast with SWI imaging for further evaluation of the right periventricular white matter lesion. We will add these tests, and medications.. 9:27 PM I discussed the case with Dr. Jean, he agrees with the assessment and plan. Patient will be admitted to the floor for further management. I have extensively reviewed the treatment plan with the patient. I have addressed all patient concerns at this time. I have also discussed the plan with the admitting physician and they agree with the current assessment and plan and have agreed to assume responsibility for the patient. All parties demonstrate verbal understanding and agreement with our assessment and plan at this time. Procedure: Lumbar Puncture Indication: Altered Mental Status/Headache A time-out was completed verifying correct patient, procedure, site, positioning , and special equipment if applicable. The patient was placed in the right lateral decubitus position in a semi- position with help from the nursing staff. The area was cleansed and draped in usual sterile fashion. 1% lidocaine was used anesthetize the surrounding skin area. A 20-gauge 3.5-inch spinal needle was placed in the L3-L4 interspace. Clear cerebral spinal fluid was obtained. Four tubes were filled with 4 mL of CSF. These were sent for the usual tests, including 1 tube to be held for further analysis if needed. Estimated Blood Loss: 0ml The patient tolerated the procedure well and there were no complications. HPI General Date/Time Provider Initiated Documentation: 12/25/17 17:54 . HPI Narrative: This is a 21-year-old female with a past medical history of seizures for which she takes gabapentin. He presents today for evaluation of fever, chills, headache, neck pain and stiffness, and seizures. The patient was here hours hours ago, and seen and assessed. At that time she had had a seizure in the morning while at work. It was cory to her normal seizures with no atypical component. At that time her vital signs demonstrated no fever, tachycardia, blood pressure abnormality, per documentation her physical exam showed no signs of neck stiffness, she had no complaint of headache, and her laboratory workup demonstrated a benign urinalysis with no signs of infection, a benign CBC with a white count of 11, no electrolyte abnormalities. After rehydration per documentation the patient felt that she was at her normal baseline and was requesting to go home. The patient was discharged with instructions for follow-up. Per the patient's history she went home and took a nap. She awoke in the early evening and complained to her significant other of headache, neck stiffness, and warmth. She had a temperature of 103 at home. She then had 5 subsequent seizures which were tonic -clonic in her normal form. She was then immediately brought to the ER for further evaluation. Currently she complains of headache, neck stiffness, and extreme fatigue. She denies any vomiting or diarrhea. She denies any bowel or bladder incontinence. She denies any weakness. She has no other complaints at this time. She did not take any medications, use any IV or illicit drugs, or do anything out of the ordinary at home during the time between HER 2 ER visits. Related Data Home Medications Medication Instructions Recorded Confirmed cholecalciferol (vitamin D3) 1 tab PO DAILY 12/25/17 12/25/17 [Vitamin D3] gabapentin 1 cap PO TID 12/25/17 12/25/17 ibuprofen 800 mg PO BID 12/25/17 12/25/17 multivitamin 1 tab PO DAILY 12/25/17 12/25/17 Allergies Allergy/AdvReac Type Severity Reaction Status Date / Time aspirin Allergy Severe Anaphylaxsi Unverified 12/25/17 17:44 s Penicillins Allergy Severe Unverified 12/25/17 17:44 lamotrigine [From Lamictal] Allergy Intermediate Unverified 12/25/17 17:44 General Stated Complaint: Seizure MENDY: 2 Review of Systems Review of Systems All systems reviewed & are unremarkable except as noted in HPI and below PFSH Family History Other Bladder cancer Cervical cancer Diabetes Ovarian cancer Seizure Medical History Asperger's disorder Epilepsy Hypoglycemia Hypothyroidism Lesion of brain Memory impairment Seizure Social History Smoking/Tobacco Use Status: Never Surgical History section Exam Narrative Exam Narrative: 1.Const: Well-nourished, Well-developed, appearing stated age 2.Eyes: PERRL, no conjunctival injection, and symmetrical lids. Bedside ultrasound demonstrates an optic nerve diameter of 5.2 mm in the left eye. 3.ENT: Atraumatic external nose and ears. Moist MM. Neck: Symmetric, trachea midline, No thyromegaly. There is no evidence of raccoon eyes, gil sign, CSF rhinorrhea, mastoid tenderness, cranial crepitus, hemotympanum, exophthalmos , or hyphema. Currently the patient demonstrates notable neck tenderness, stiffness, and pain with flexion. Positive Kernig's and Brudzinski's on exam. 4.CVS: +S1/S2, No murmurs or gallops. Peripheral pulses 2+ and equal in all extremities. Brisk capillary refill in all extremities. 5.RESP: Unlabored respiratory effort. Clear to auscultation bilaterally. No wheezes rales or rhonchi 6.GI: Soft, Nontender/Nondistended, No hepatosplenomegaly. No guarding or rebound. 7.MSK: Normocephalic/Atraumatic, Extremities w/o deformity or ttp No cyanosis or clubbing, Normal movement of all extremities 8.Skin: Warm, Dry. No rashes or lesions. 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 Sensation grossly intact, no focal neurologic deficits. Patient is able to move all extremities, 5 out of 5 strength in all extremities. She responds appropriately to all questions. Normal rapid alternating movements, no appreciable deficits or significant abnormalities. 10.Psych: (AAO) x3. Appropriate mood and affect, however the patient does appear drowsy. Course Vital Signs Temperature 39.1 C H 12/25/17 17:39 Pulse 130 H 12/25/17 17:39 Respiratory Rate 18 12/25/17 17:39 Blood Pressure 126/61 12/25/17 17:39 Pulse Oximetry 96 12/25/17 17:39 Temperature 38.4 C H 12/25/17 19:56 Temperature Source Skin 12/25/17 19:50 Pulse 118 H 12/25/17 19:01 Pulse 115 H 12/25/17 19:02 Respiratory Rate 8 L 12/25/17 19:01 Respiratory Effort 12/25/17 19:12 Respiratory Depth Normal 12/25/17 19:12 Respiratory Pattern Normal 12/25/17 19:12 Blood Pressure 102/48 L 12/25/17 19:01 Blood Pressure Mean 60 12/25/17 19:01 Pulse Oximetry 96 12/25/17 19:02 Oxygen Delivery Method Room Air 12/25/17 17:39 Oxygen Flow Rate 0 12/25/17 17:39 Lab/Test Results Lab/Test Results: 12/25/17 18:50 Cerebrospinal Fluid Body Fluid Culture - Pending 12/25/17 18:50 Cerebrospinal Fluid Gram Stain - Final 12/25/17 18:33 Blood Blood Culture - Pending 12/25/17 17:50 Blood Blood Culture - Pending Laboratory Tests Range/Units 12/25/17 12/25/17 12/25/17 17:50 17:50 17:50 WBC (4.4-10.8) k/cumm 14.15 H RBC (4.00-5.20) m/cumm 4.06 Hgb (12.0-15.5) g/dL 12.3 Hct (36.0-46.0) % 37.2 MCV (80-95) fL 91.6 MCH (27.0-33.0) pg 30.3 MCHC (32.0-36.0) g/dL 33.1 RDW (11.7-14.6) % 12.7 Plt Count (130-400) x1000/uL 243 MPV (8.0-11.0) fL 10.2 Immature Gran % 0.4 Neutrophils % 80.6 Lymphocytes % 8.5 Monocytes % 10.1 Eosinophils % 0.2 Basophils % 0.2 Absolute Neutrophils (1.2-6.7) k/cumm 11.40 H Absolute Lymphocytes (1.2-3.4) k/cumm 1.20 Absolute Monocytes (0.11-0.7) k/cumm 1.43 H Absolute Eosinophils (0.0-0.7) k/cumm 0.03 Absolute Basophils (0.0-0.2) k/cumm 0.03 Xanthochromia Sodium (136-145) mmol/L 138 Potassium (3.5-5.1) mmol/L 3.6 Chloride (98-107) mmol/L 100 Carbon Dioxide (21.0-32.0) mmol/L 27.4 Anion Gap (3-11) mmol/L 10.6 BUN (7-18) mg/dL 10 Creatinine (0.55-1.02) mg/dL 0.86 Estimated GFR/1.73 m2 (mL/min/1.73m2) >= 60.00 Glucose (70-100) mg/dL 116 H Lactate (0.6-1.4) mmol/L 0.9 Calcium (8.5-10.1) mg/dL 8.7 Total Bilirubin (0.2-1.0) mg/dL 0.6 AST (15-37) U/L 21 ALT (12-78) U/L 33 Alkaline Phosphatase (46-116) U/L 78 Total Protein (6.4-8.2) g/dL 8.0 Albumin (3.4-5.0) g/dL 4.1 CSF Tube Number CSF Color CSF Clarity CSF WBC (0-5) /mm3 CSF RBC (0-5) /mm3 CSF Diff Comment CSF Glucose (40-70) mg/dL CSF Total Protein (15-45) mg/dL Range/Units 12/25/17 12/25/17 18:50 18:50 WBC (4.4-10.8) k/cumm RBC (4.00-5.20) m/cumm Hgb (12.0-15.5) g/dL Hct (36.0-46.0) % MCV (80-95) fL MCH (27.0-33.0) pg MCHC (32.0-36.0) g/dL RDW (11.7-14.6) % Plt Count (130-400) x1000/uL MPV (8.0-11.0) fL Immature Gran % Neutrophils % Lymphocytes % Monocytes % Eosinophils % Basophils % Absolute Neutrophils (1.2-6.7) k/cumm Absolute Lymphocytes (1.2-3.4) k/cumm Absolute Monocytes (0.11-0.7) k/cumm Absolute Eosinophils (0.0-0.7) k/cumm Absolute Basophils (0.0-0.2) k/cumm Xanthochromia Absent Sodium (136-145) mmol/L Potassium (3.5-5.1) mmol/L Chloride (98-107) mmol/L Carbon Dioxide (21.0-32.0) mmol/L Anion Gap (3-11) mmol/L BUN (7-18) mg/dL Creatinine (0.55-1.02) mg/dL Estimated GFR/1.73 m2 (mL/min/1.73m2) Glucose (70-100) mg/dL Lactate (0.6-1.4) mmol/L Calcium (8.5-10.1) mg/dL Total Bilirubin (0.2-1.0) mg/dL AST (15-37) U/L ALT (12-78) U/L Alkaline Phosphatase (46-116) U/L Total Protein (6.4-8.2) g/dL Albumin (3.4-5.0) g/dL CSF Tube Number 4 CSF Color Colorless CSF Clarity Clear CSF WBC (0-5) /mm3 3 CSF RBC (0-5) /mm3 2 CSF Diff Comment CSF Glucose (40-70) mg/dL 66 CSF Total Protein (15-45) mg/dL 35
--- NOTE | 2017-12-25 21:05 | NUR.NOTE ---
Nursing Note:After the slowing of the Vanco and the 125mg of solu medrol, patients redness has resolved. she is no longer itchy.
[2017-12-25] MEDS: ACYCLOVIR SODIUM IVPB (21:59)
[2017-12-25] MEDS: NORMAL SALINE IVPB (21:59)
[2017-12-25] MEDS: Normal Saline 1,000 ML 75 ML IV (22:46)
[2017-12-26] VITALS (49 sets, daily range): BP systolic 93–118; BP diastolic 41–67; PULSE 79–100; RESP 14–16; TEMP 36.3–37.2; O2SAT 94–99
[2017-12-26] MEDS: CIPROFLOXACIN 400 MG/200 ML BAG 200 MG IVPB ×2 (06:13→18:38)
--- NOTE | 2017-12-26 06:37 | W.PM.HP.N ---
Date of service: 12/26/17 Time of Service: 06:37 Assessment and Plan (1) Meningitis: Start date: 12/25/17 Current visit: Yes Status: Acute Patient presents with high fever and neck stiffness. Certainly suspicious for meningitis. Lumbar puncture is reassuring. Probably viral related illness. HSV and West Nile virus titers pending. Empiric coverage with vancomycin and ciprofloxacin as well as acyclovir. Monitor cultures. The 4 mm punctate hemorrhage needs to be further verified. MRI pending for today. This could represent artifact. Further follow-up with neurology either via transfer to [facility] or as outpatient. Currently scheduled to see Dr. Uribe 12/30/2017. History of Present Illness Chief Complaint: Seizures/meningitis Narrative: This is a 21-year-old woman with an underlying seizure disorder that presented with high fever and a history of multiple seizures on the day of admission. She presented in the morning to the emergency room after her picked her up at work because of feeling sick. He described multiple seizures which are the small kind, she stares off into space. No tonic-clonic activity. Patient describes waking in the morning with a high fever and a stiff neck, no other URI symptoms. Workup on her first ER visit was negative including no apparent fever. She was discharged home. She returned to the emergency room a few hours later with recurrent seizures and high fever. Exam was positive for stiff neck with meningeal signs. A head CT showed a new 4 mm punctate lesion on the right side white matter near the ventricle not present on a prior MRI. There was concern this could represent a small hemorrhage. An LP was performed showing 2-4 white cells, 2 red cells. Neurology at was consulted. They recommended antibiotics and antiviral medication as well as loading with Keppra. Their plan was to take her in transfer the following day when a bed was available. Patient rested comfortably in our ICU without any further seizure activity she is now afebrile. Review of Systems Constitutional Reports system reviewed and no additional complaints, except as docu Cardiovascular Reports system reviewed and no additional complaints, except as docu Respiratory Reports system reviewed and no additional complaints, except as docu and Denies cough Comments: No URI symptoms Gastrointestinal Reports system reviewed and no additional complaints, except as docu and Denies abdominal pain Genitourinary Reports system reviewed and no additional complaints, except as docu Musculoskeletal Reports system reviewed and no additional complaints, except as docu Integumentary/Breasts Reports system reviewed and no additional complaints, except as docu Neurologic Reports system reviewed and no additional complaints, except as docu Comments: Seizures consist of mostly staring spells. She apparently has had tonic-clonic seizures in the distant past. Psychiatric Reports system reviewed and no additional complaints, except as docu Comments: Aspergers syndrome and memory impairment. Endocrine Reports system reviewed and no additional complaints, except as docu Comments: Reportedly hypothyroid not on medication Hematologic/Lymphatic Reports system reviewed and no additional complaints, except as docu PFSH Family History Other Bladder cancer Cervical cancer Diabetes Ovarian cancer Seizure Medical History Meningitis (Acute) Asperger's disorder Epilepsy Hypoglycemia Hypothyroidism Lesion of brain Memory impairment Seizure Social History Smoking/Tobacco Use Status: Never Surgical History section Meds Home Medications Medication Instructions Recorded Confirmed Type cholecalciferol (vitamin D3) 1 tab PO DAILY 12/25/17 12/25/17 History [Vitamin D3] gabapentin 1 cap PO TID 12/25/17 12/25/17 History ibuprofen 800 mg PO BID 12/25/17 12/25/17 History multivitamin 1 tab PO DAILY 12/25/17 12/25/17 History Allergies Allergy/AdvReac Type Severity Reaction Status Date / Time aspirin Allergy Severe Anaphylaxsi Unverified 12/25/17 17:44 s Penicillins Allergy Severe Unverified 12/25/17 17:44 lamotrigine [From Lamictal] Allergy Intermediate Unverified 12/25/17 17:44 Exam Const General: cooperative, comfortable and no acute distress Nutritional Appearance: average body habitus and well nourished Orientation: awake and oriented to person Limitations: altered mental status (Just woken up, somewhat lethargic but appeared to be fully aware, answers questions) Eyes Pupils: PERRL Neck Neck: no meningeal signs (Denies stiffness or pain with movement, better) Chest Chest: normal inspection of the chest Resp Effort & Inspection: normal respiratory effort Auscultation: clear to auscultation bilaterally Cardio Rate: regular rate Rhythm: regular rhythm Heart Sounds: S1 normal, S2 normal and no murmurs GI Inspection: normal to inspection Palpation: soft and nontender External Female Exam: other ( test negative) Neuro General: no focal motor deficits Cranial Nerves: CN's II-XI intact bilaterally Speech: speech normal Extrem General: no clubbing, cyanosis or edema Psych Appearance: grossly normal Speech and Movement: speech and movement normal Attitude: cooperative Thought Process: normal Results Imaging Imaging Studies: Head CT 0.4 cm focus of hyperdensity (80 HU) within the right periventricular white matter. No similar finding was seen on prior MR brain, raising suspicion for concern of punctate hemorrhage. Recommend correlation with prior CTs if available as it is possible this could also represent a calcification, however the density of this lesion could still also represent blood. Labs : 12/25/17 17:50 12/25/17 17:50 Laboratory Results - last 24 hr 12/25/17 12/25/17 12/25/17 17:50 17:50 17:50 WBC 14.15 H RBC 4.06 Hgb 12.3 Hct 37.2 MCV 91.6 MCH 30.3 MCHC 33.1 RDW 12.7 Plt Count 243 MPV 10.2 Immature Gran % 0.4 Neutrophils % 80.6 Lymphocytes % 8.5 Monocytes % 10.1 Eosinophils % 0.2 Basophils % 0.2 Absolute Neutrophils 11.40 H Absolute Lymphocytes 1.20 Absolute Monocytes 1.43 H Absolute Eosinophils 0.03 Absolute Basophils 0.03 Xanthochromia Sodium 138 Potassium 3.6 Chloride 100 Carbon Dioxide 27.4 Anion Gap 10.6 BUN 10 Creatinine 0.86 Estimated GFR/1.73 m2 >= 60.00 Glucose 116 H Lactate 0.9 Calcium 8.7 Total Bilirubin 0.6 AST 21 ALT 33 Alkaline Phosphatase 78 Total Protein 8.0 Albumin 4.1 CSF Tube Number CSF Color CSF Clarity CSF WBC CSF RBC CSF Neutrophils CSF Lymphocytes CSF Monos/Macrophages CSF Other Cells CSF Diff Comment CSF Glucose CSF Total Protein HHV-6 DNA (PCR) 12/25/17 12/25/17 12/25/17 18:50 18:50 18:50 WBC RBC Hgb Hct MCV MCH MCHC RDW Plt Count MPV Immature Gran % Neutrophils % Lymphocytes % Monocytes % Eosinophils % Basophils % Absolute Neutrophils Absolute Lymphocytes Absolute Monocytes Absolute Eosinophils Absolute Basophils Xanthochromia Cancelled Absent Sodium Potassium Chloride Carbon Dioxide Anion Gap BUN Creatinine Estimated GFR/1.73 m2 Glucose Lactate Calcium Total Bilirubin AST ALT Alkaline Phosphatase Total Protein Albumin CSF Tube Number Cancelled 4 CSF Color Cancelled Colorless CSF Clarity Cancelled Clear CSF WBC Cancelled 3 CSF RBC Cancelled 2 CSF Neutrophils Cancelled CSF Lymphocytes Cancelled CSF Monos/Macrophages Cancelled CSF Other Cells Cancelled CSF Diff Comment Cancelled CSF Glucose 66 CSF Total Protein 35 HHV-6 DNA (PCR) 12/25/17 18:50 WBC RBC Hgb Hct MCV MCH MCHC RDW Plt Count MPV Immature Gran % Neutrophils % Lymphocytes % Monocytes % Eosinophils % Basophils % Absolute Neutrophils Absolute Lymphocytes Absolute Monocytes Absolute Eosinophils Absolute Basophils Xanthochromia Sodium Potassium Chloride Carbon Dioxide Anion Gap BUN Creatinine Estimated GFR/1.73 m2 Glucose Lactate Calcium Total Bilirubin AST ALT Alkaline Phosphatase Total Protein Albumin CSF Tube Number CSF Color CSF Clarity CSF WBC CSF RBC CSF Neutrophils CSF Lymphocytes CSF Monos/Macrophages CSF Other Cells CSF Diff Comment CSF Glucose CSF Total Protein HHV-6 DNA (PCR) Cancelled CSF Cell Count & Differential Tube # 4 12/25/17 Color Colorless 12/25/17 Clarity Clear 12/25/17 Xanthochromia Absent 12/25/17 WBC 3 0-5 /mm3 12/25/17 RBC 2 0-5 /mm3 12/25/17 Differential CSF: 12/25/17 DIFFERENTIAL NOT PERFORMED ON WBC LESS THAN 5 Other Cells CSF 0-0 % 12/25/17 slide scanned for cells; 12 cells seen, 11 lymphs and 1 mono.
--- NOTE | 2017-12-26 06:40 | HPE_ITS ---
Date of service: 12/26/17 Time of Service: 06:37 Assessment and Plan (1) Meningitis: Start date: 12/25/17 Current visit: Yes Status: Acute Patient presents with high fever and neck stiffness. Certainly suspicious for meningitis. Lumbar puncture is reassuring. Probably viral related illness. HSV and West Nile virus titers pending. Empiric coverage with vancomycin and ciprofloxacin as well as acyclovir. Monitor cultures. The 4 mm punctate hemorrhage needs to be further verified. MRI pending for today. This could represent artifact. Further follow-up with neurology either via transfer to [facility] or as outpatient. Currently scheduled to see Dr. Uribe 12/30/2017. History of Present Illness Chief Complaint: Seizures/meningitis Narrative: This is a 21-year-old woman with an underlying seizure disorder that presented with high fever and a history of multiple seizures on the day of admission. She presented in the morning to the emergency room after her picked her up at work because of feeling sick. He described multiple seizures which are the small kind, she stares off into space. No tonic- clonic activity. Patient describes waking in the morning with a high fever and a stiff neck, no other URI symptoms. Workup on her first ER visit was negative including no apparent fever. She was discharged home. She returned to the emergency room a few hours later with recurrent seizures and high fever. Exam was positive for stiff neck with meningeal signs. A head CT showed a new 4 mm punctate lesion on the right side white matter near the ventricle not present on a prior MRI. There was concern this could represent a small hemorrhage. An LP was performed showing 2-4 white cells, 2 red cells. Neurology at was consulted. They recommended antibiotics and antiviral medication as well as loading with Keppra. Their plan was to take her in transfer the following day when a bed was available. Patient rested comfortably in our ICU without any further seizure activity she is now afebrile. Review of Systems Constitutional Reports system reviewed and no additional complaints, except as docu Cardiovascular Reports system reviewed and no additional complaints, except as docu Respiratory Reports system reviewed and no additional complaints, except as docu and Denies cough Comments: No URI symptoms Gastrointestinal Reports system reviewed and no additional complaints, except as docu and Denies abdominal pain Genitourinary Reports system reviewed and no additional complaints, except as docu Musculoskeletal Reports system reviewed and no additional complaints, except as docu Integumentary/Breasts Reports system reviewed and no additional complaints, except as docu Neurologic Reports system reviewed and no additional complaints, except as docu Comments: Seizures consist of mostly staring spells. She apparently has had tonic-clonic seizures in the distant past. Psychiatric Reports system reviewed and no additional complaints, except as docu Comments: Aspergers syndrome and memory impairment. Endocrine Reports system reviewed and no additional complaints, except as docu Comments: Reportedly hypothyroid not on medication Hematologic/Lymphatic Reports system reviewed and no additional complaints, except as docu PFSH Family History Other Bladder cancer Cervical cancer Diabetes Ovarian cancer Seizure Medical History Meningitis (Acute) Asperger's disorder Epilepsy Hypoglycemia Hypothyroidism Lesion of brain Memory impairment Seizure Social History Smoking/Tobacco Use Status: Never Surgical History section Meds Home Medications Medication Instructions Recorded Confirmed Type cholecalciferol (vitamin D3) 1 tab PO DAILY 12/25/17 12/25/17 History [Vitamin D3] gabapentin 1 cap PO TID 12/25/17 12/25/17 History ibuprofen 800 mg PO BID 12/25/17 12/25/17 History multivitamin 1 tab PO DAILY 12/25/17 12/25/17 History Allergies Allergy/AdvReac Type Severity Reaction Status Date / Time aspirin Allergy Severe Anaphylaxsi Unverified 12/25/17 17:44 s Penicillins Allergy Severe Unverified 12/25/17 17:44 lamotrigine [From Lamictal] Allergy Intermediate Unverified 12/25/17 17:44 Exam Const General: cooperative, comfortable and no acute distress Nutritional Appearance: average body habitus and well nourished Orientation: awake and oriented to person Limitations: altered mental status (Just woken up, somewhat lethargic but appeared to be fully aware, answers questions) Eyes Pupils: PERRL Neck Neck: no meningeal signs (Denies stiffness or pain with movement, better) Chest Chest: normal inspection of the chest Resp Effort & Inspection: normal respiratory effort Auscultation: clear to auscultation bilaterally Cardio Rate: regular rate Rhythm: regular rhythm Heart Sounds: S1 normal, S2 normal and no murmurs GI Inspection: normal to inspection Palpation: soft and nontender External Female Exam: other ( test negative) Neuro General: no focal motor deficits Cranial Nerves: CN's II-XI intact bilaterally Speech: speech normal Extrem General: no clubbing, cyanosis or edema Psych Appearance: grossly normal Speech and Movement: speech and movement normal Attitude: cooperative Thought Process: normal Results Imaging Imaging Studies: Head CT 0.4 cm focus of hyperdensity (80 HU) within the right periventricular white matter. No similar finding was seen on prior MR brain, raising suspicion for concern of punctate hemorrhage. Recommend correlation with prior CTs if available as it is possible this could also represent a calcification, however the density of this lesion could still also represent blood. Labs : 12/25/17 17:50 12/25/17 17:50 Laboratory Results - last 24 hr 12/25/17 12/25/17 12/25/17 17:50 17:50 17:50 WBC 14.15 H RBC 4.06 Hgb 12.3 Hct 37.2 MCV 91.6 MCH 30.3 MCHC 33.1 RDW 12.7 Plt Count 243 MPV 10.2 Immature Gran % 0.4 Neutrophils % 80.6 Lymphocytes % 8.5 Monocytes % 10.1 Eosinophils % 0.2 Basophils % 0.2 Absolute Neutrophils 11.40 H Absolute Lymphocytes 1.20 Absolute Monocytes 1.43 H Absolute Eosinophils 0.03 Absolute Basophils 0.03 Xanthochromia Sodium 138 Potassium 3.6 Chloride 100 Carbon Dioxide 27.4 Anion Gap 10.6 BUN 10 Creatinine 0.86 Estimated GFR/1.73 m2 >= 60.00 Glucose 116 H Lactate 0.9 Calcium 8.7 Total Bilirubin 0.6 AST 21 ALT 33 Alkaline Phosphatase 78 Total Protein 8.0 Albumin 4.1 CSF Tube Number CSF Color CSF Clarity CSF WBC CSF RBC CSF Neutrophils CSF Lymphocytes CSF Monos/Macrophages CSF Other Cells CSF Diff Comment CSF Glucose CSF Total Protein HHV-6 DNA (PCR) 12/25/17 12/25/17 12/25/17 18:50 18:50 18:50 WBC RBC Hgb Hct MCV MCH MCHC RDW Plt Count MPV Immature Gran % Neutrophils % Lymphocytes % Monocytes % Eosinophils % Basophils % Absolute Neutrophils Absolute Lymphocytes Absolute Monocytes Absolute Eosinophils Absolute Basophils Xanthochromia Cancelled Absent Sodium Potassium Chloride Carbon Dioxide Anion Gap BUN Creatinine Estimated GFR/1.73 m2 Glucose Lactate Calcium Total Bilirubin AST ALT Alkaline Phosphatase Total Protein Albumin CSF Tube Number Cancelled 4 CSF Color Cancelled Colorless CSF Clarity Cancelled Clear CSF WBC Cancelled 3 CSF RBC Cancelled 2 CSF Neutrophils Cancelled CSF Lymphocytes Cancelled CSF Monos/Macrophages Cancelled CSF Other Cells Cancelled CSF Diff Comment Cancelled CSF Glucose 66 CSF Total Protein 35 HHV-6 DNA (PCR) 12/25/17 18:50 WBC RBC Hgb Hct MCV MCH MCHC RDW Plt Count MPV Immature Gran % Neutrophils % Lymphocytes % Monocytes % Eosinophils % Basophils % Absolute Neutrophils Absolute Lymphocytes Absolute Monocytes Absolute Eosinophils Absolute Basophils Xanthochromia Sodium Potassium Chloride Carbon Dioxide Anion Gap BUN Creatinine Estimated GFR/1.73 m2 Glucose Lactate Calcium Total Bilirubin AST ALT Alkaline Phosphatase Total Protein Albumin CSF Tube Number CSF Color CSF Clarity CSF WBC CSF RBC CSF Neutrophils CSF Lymphocytes CSF Monos/Macrophages CSF Other Cells CSF Diff Comment CSF Glucose CSF Total Protein HHV-6 DNA (PCR) Cancelled CSF Cell Count & Differential Tube # 4 Color Colorless Clarity Clear Xanthochromia Absent WBC 3 0-5 /mm3 RBC 2 0-5 /mm3 Differential CSF: DIFFERENTIAL NOT PERFORMED ON WBC LESS THAN 5 Other Cells CSF 0-0 % slide scanned for cells; 12 cells seen, 11 lymphs and 1 mono.
[2017-12-26 07:10] LABS: Abs Immature Grans 0.04 k/cumm (0.0-0.09); Absolute Eosinophil Count 0.03 k/cumm (0.0-0.7); Absolute Lymphocyte Count 0.67 k/cumm (1.2-3.4); Absolute Monocyte Count 0.22 k/cumm (0.11-0.7); Absolute Neutrophil Count 11.89 k/cumm (1.2-6.7); Basophils % 0.2; Eosinophils % 0.2; HGB 11.5 g/dL (12.0-15.5); Immature Grans % 0.3; Lymphocytes % 5.2; Mean Corp. HGB Concentration 32.9 g/dL (32.0-36.0); Mean Corpuscular Hemoglobin 30.6 pg (27.0-33.0); Mean Corpuscular Volume 93.1 fL (80-95); Mean Platelet Volume 10.8 fL (8.0-11.0); Monocytes % 1.7; Neutrophils % 92.4; Platelet Count 200 x1000/uL (130-400); RBC 3.76 m/cumm (4.00-5.20); RBC Distribution Width 12.6 % (11.7-14.6); White Blood Cell Count 12.87 k/cumm (4.4-10.8)
[2017-12-26 07:19] LABS: Absolute Basophil Count 0.03 k/cumm (0.0-0.2)
--- NOTE | 2017-12-26 07:37 | PDOC.CMIN ---
- If Service Date Differs Date of service: 12/26/17 Time of Service: 07:37 Care Management Initial Assess REASON FOR HOSPITALIZATION:: Seizures, meningitis. PAST MEDICAL HISTORY/PAST SURGICAL HISTORY:: Asperger's disorder, epilepsy, hypoglycemia, hypothyroidism, brain lesion, memory impairment. Surgical hx: section. PREVIOUS FUNCTIONAL STATUS/SOCIAL/FAMILY SUPPORTS:: Tracy resides with her , Mike, their four year old daugher, Jeanine, and much of her family including mom, grandparents, sisters, etc. 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 She is independent with her ADLs and relies on family for transportation. CURRENT FUNCTIONAL STATUS:: Tracy is lying in bed in the ICU when CM visits this morning. She has just returned from a brain MRI and her , Mike, is at bedside. Tracy reports that she is very tired and is struggling to keep her eyes open and answer questions during CM's visit. Patient complains of a stiff/sore neck and reports that the light in the room is bothering her eyes. Tracy denies N/V/D and headache and has been afebrile. ADVANCE DIRECTIVES:: None on file at [facility]. Has patient been provided with information about the portal?: Yes Did the patient sign up for the portal?: No CODE STATUS:: Full Code INSURANCE COVERAGE / FINANCIAL ISSUES:: Medicaid. CURRENT HOME/COMMUNITY SERVICES/EQUIPMENT:: No current home or community services. PRIMARY CARE PHYSICIAN:: Stalin Newell. POTENTIAL DISCHARGE NEEDS:: Follow up appointment with PCP. PATIENT/FAMILY EDUCATION NEEDS:: Discharge education, any limititations, and follow up plan of care. Ask Me Three discussion. ANTICIPATED BARRIERS TO DISCHARGE:: No anticipated barriers to discharge. TRANSPORTATION:: Tracy will transport via private vehicle with her , Mike. PLAN:: Tracy will discharge home when medically ready per MD. Anticipate patient will discharge with no services and follow up with PCP. CM will continue to offer support to patient and care team regarding discharge planning and disposition.
--- NOTE | 2017-12-26 07:43 | INITIAL_ITS ---
- If Service Date Differs Date of service: 12/26/17 Time of Service: 07:37 Care Management Initial Assess REASON FOR HOSPITALIZATION:: Seizures, meningitis. PAST MEDICAL HISTORY/PAST SURGICAL HISTORY:: Asperger's disorder, epilepsy, hypoglycemia, hypothyroidism, brain lesion, memory impairment. Surgical hx: section. PREVIOUS FUNCTIONAL STATUS/SOCIAL/FAMILY SUPPORTS:: Tracy resides with her , Mike, their four year old daugher, Jeanine, and much of her family including mom, grandparents, sisters, etc. 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 She is independent with her ADLs and relies on family for transportation. CURRENT FUNCTIONAL STATUS:: Tracy is lying in bed in the ICU when CM visits this morning. She has just returned from a brain MRI and her , Mike, is at bedside. Tracy reports that she is very tired and is struggling to keep her eyes open and answer questions during CM's visit. Patient complains of a stiff/ sore neck and reports that the light in the room is bothering her eyes. Tracy denies N/V/D and headache and has been afebrile. ADVANCE DIRECTIVES:: None on file at [facility]. Has patient been provided with information about the portal?: Yes Did the patient sign up for the portal?: No CODE STATUS:: Full Code INSURANCE COVERAGE / FINANCIAL ISSUES:: Medicaid. CURRENT HOME/COMMUNITY SERVICES/EQUIPMENT:: No current home or community services. PRIMARY CARE PHYSICIAN:: Stalin Newell. POTENTIAL DISCHARGE NEEDS:: Follow up appointment with PCP. PATIENT/FAMILY EDUCATION NEEDS:: Discharge education, any limititations, and follow up plan of care. Ask Me Three discussion. ANTICIPATED BARRIERS TO DISCHARGE:: No anticipated barriers to discharge. TRANSPORTATION:: Tracy will transport via private vehicle with her , Mike. PLAN:: Tracy will discharge home when medically ready per MD. Anticipate patient will discharge with no services and follow up with PCP. CM will continue to offer support to patient and care team regarding discharge planning and disposition.
[2017-12-26 07:50] LABS: Anion Gap 9.8 mmol/L (3-11); BUN 9 mg/dL (7-18); CO2 23.2 mmol/L (21.0-32.0); CREATININE 0.52 mg/dL (0.55-1.02); Chloride 108 mmol/L (98-107); Glucose 161 mg/dL (70-100); Potassium 4.1 mmol/L (3.5-5.1); Sodium 141 mmol/L (136-145)
[2017-12-26] MEDS: VANCOMYCIN 1,250 MG in Normal Saline 250 ML 166.667 MG IVPB ×2 (08:41→16:32)
[2017-12-26] MEDS: Gabapentin 300 MG CAP PO ×3 (08:42→20:14)
--- NOTE | 2017-12-26 10:01 | DI.MRI_ITS ---
SYMPTOM/DIAGNOSIS: F/U WHITE MATTER DENSITY ON CT 12/25, SEIZURE BRAIN MRI: Noncontrast examination. Comparison is made with CT scan of 12/25/17. Comparison MRI is 11/26/17. There is normal signal in the ortega and white matter. The ventricles are intact. The basilar cisterns are patent. No acute midline shift or mass effect is identified. The diffusion weighted images have a normal appearance. The heme sensitive sequence shows no evidence of intracranial hemorrhage. No signal abnormality is seen to correspond to the density seen on CT scan from 12/25/17. No intracranial mass is present. Normal flow void is seen in the [place]. The pituitary gland appears grossly unremarkable. The visualized paranasal sinuses are clear. IMPRESSION: Negative MRI of the brain. No signal abnormality is seen to correspond to the density seen on the CT scan from 12/25/17. Follow up CT scan is recommended to document stability of the lesion and to exclude other etiologies.
--- NOTE | 2017-12-26 10:41 | PGE_ITS ---
Assessment and Plan (1) Meningitis: Current visit: Yes Status: Acute This patient presented with high fever and nuchal rigidity, suspicious for meningitis. Lumbar puncture reassuring, likely related to viral illness. HSV and West Nile virus titers are pending. Cultures revealed no bacterial growth at 24 hours. She is afebrile. For now we will continue empiric coverage with vancomycin and Cipro as well as acyclovir. Continue to monitor cultures. Of note there was a 4 mm punctuate lesion noted on CT scan. A follow-up MRI has been completed and is currently pending. Will consult neurology if needed based on results of MRI. She does have an outpatient neurology appointment scheduled with Dr. Lester on 12/30/2017. Addendum: BRAIN MRI Negative. No signal abnormality seen to correspond to the density seen on the CT scan from 12/25/17. (2) Seizure disorder: Current visit: Yes Status: Acute She has seizures at baseline. She reportedly had multiple seizures prior to her admission. Nursing reported on 10-second absence seizure this morning, where she was unresponsive, staring off briefly, with return to baseline immediately following. She was loaded with Keppra in the emergency department. She continues on twice daily dosing of Keppra in addition to her outpatient dose of gabapentin. Continue seizure precautions and antiepileptic medication. (3) Asperger's disorder: Current visit: Yes Status: Acute History of Asperger's disorder. Communicates well. (4) Hypothyroidism: Current visit: Yes Status: Resolved Not currently on thyroid supplement. Most recent TSH 10/15/2016, within normal limits at 1.70. (5) Discharge planning issues: Current visit: Yes Status: Acute She is a full code. This case was discussed with Dr. Nguyen who is in agreement. Subjective Interval history since last seen: Tracy Morris is a 21-year-old female with an underlying seizure disorder and history of Asperger's who presented to the emergency department last evening on 12/25/2017 with a high fever and a report of multiple absence seizures on the day of admission. She also reported a stiff neck but no other upper respiratory symptoms. She was initially sent home from the emergency department but returned hours later with recurrent seizures and high fever. Her exam was positive for stiff neck with meningeal signs. She had a head CT which showed a new 4 mm punctuate lesion on the right side white matter near the ventricle which had not been present on a prior MRI. There was concern that this could represent a small hemorrhage. She did have an MRI this morning which is currently pending. In the emergency department she did have an LP which showed 2-4 white cells 2 red cells, at this point there is no bacterial growth at 24 hours, glucose was normal protein was normal. Neurology at [facility] was consulted from the emergency department. They recommend antibiotics and antiviral medications as well as loading with Keppra. They did not have any beds available however, the plan was for [facility] to take her today when there is a bed available. Tracy reports feeling very tired today she reports that her headache has improved, she is experiencing some light sensitivity, she explains that the light bothers her eyes but does not increase headache or neck pain. Her neck is still sore posteriorly, however, it has improved from the time of admission. She has not had any fevers overnight. She denies nausea, vomiting, diarrhea. She has no new rashes. She has not had any recent upper respiratory symptoms. She has not noticed any lymphadenopathy. Her reports that she seems to be back to her baseline mental status. He reports that she was confused in the emergency department last night and experiencing difficulty talking. Nursing reports that she had a 10 second absence seizure this morning where she was unresponsive then immediately returned to baseline. She verbalizes no other concerns. She is afebrile.The plan to continue empiric medications and monitor culture results was reviewed with her and her and they verbalize agreement. Exam Const General: cooperative, comfortable and no acute distress (appears tired but not lethargic, answers questions appropriately, follows directions.) Orientation: awake (awakens easily to verbal stimuli. no confusion.) [facility] Head: normocephalic and atraumatic Eyes Conjunctivae: conjunctivae normal Sclera: sclerae normal Pupils: PERRL (No photophobia on exam. EOM exam difficult to assess due to sleepiness.) Neck Neck: limited ROM (Reports sore neck on examination with palpation of posterior neck and range of motion. Unable to perform chin to chest. some discomfort attempting ear to neck bilaterally, discomfort turning head side to side.), no lymphadenopathy and no JVD Resp Effort & Inspection: normal respiratory effort and able to speak in complete sentences Auscultation: clear to auscultation bilaterally, no rales, no rhonchi and no wheezes Cardio Rate: regular rate Heart Sounds: S1 normal, S2 normal and no murmurs Pulses: normal peripheral pulses GI Palpation: soft, no masses and tender (Mild tenderness on palpation of abdomen.) Auscultation: normal bowel sounds Skin General skin exam: no rashes or lesions noted Neuro General: awake (sleepy but awakens easily to verbal stimuli.), oriented x3, moves all extremities and not confused Cranial Nerves: PERRL, no nystagmus and hearing normal Cognition: normal cognition Speech: speech normal (Speech clear, answers questions appropriately.) Motor: muscle tone normal throughout, strength 5/5 throughout and no movement abnormalities noted Sensory Exam: no sensory deficits noted Coordination: [id number] test normal Extrem General: normal to inspection, full ROM and no clubbing, cyanosis or edema Objective Objective Clinical Data: Abnormal lab results 12/25/17 12/25/17 12/26/17 Range/Units 17:50 17:50 06:34 WBC 14.15 H (4.4-10.8) k/cumm RBC (4.00-5.20) m/cumm Hgb (12.0-15.5) g/dL Hct (36.0-46.0) % Absolute Neutrophils 11.40 H (1.2-6.7) k/cumm Absolute Lymphocytes (1.2-3.4) k/cumm Absolute Monocytes 1.43 H (0.11-0.7) k/cumm Chloride 108 H (98-107) mmol/L Creatinine 0.52 L D (0.55-1.02) mg/dL Glucose 116 H 161 H (70-100) mg/dL Calcium 8.0 L (8.5-10.1) mg/dL 12/26/17 Range/Units 06:34 WBC 12.87 H (4.4-10.8) k/cumm RBC 3.76 L (4.00-5.20) m/cumm Hgb 11.5 L (12.0-15.5) g/dL Hct 35.0 L (36.0-46.0) % Absolute Neutrophils 11.89 H (1.2-6.7) k/cumm Absolute Lymphocytes 0.67 L (1.2-3.4) k/cumm Absolute Monocytes (0.11-0.7) k/cumm Chloride (98-107) mmol/L Creatinine (0.55-1.02) mg/dL Glucose (70-100) mg/dL Calcium (8.5-10.1) mg/dL Vital Signs Temperature 36.3 C L 12/26/17 08:15 Temperature Source Temporal Artery Scan 12/26/17 08:15 Pulse 92 H 12/26/17 08:58 Pulse 99 H 12/25/17 23:02 Respiratory Rate 16 12/26/17 08:15 Respiratory Effort 12/26/17 09:24 Respiratory Depth Normal 12/25/17 23:26 Respiratory Pattern Normal 12/25/17 23:26 Blood Pressure 118/67 12/26/17 08:58 Blood Pressure Mean 78 12/26/17 08:58 Blood Pressure Position Supine 12/25/17 23:26 Pulse Oximetry 99 12/26/17 08:57 Oxygen Delivery Method Room Air 12/26/17 08:15 Oxygen Flow Rate 0 12/26/17 08:15 Pain Level 3 12/26/17 08:15 Intake & Output 12/25/17 12/25/17 12/26/17 11:59 23:59 11:59 Intake Total 3421 / 3421 490 / 490 Balance 3421 / 3421 490 / 490 Weight 84.6 kg 84.9 kg Intake: IV 3421 / 3421 250 / 250 Oral 240 / 240 Laboratory Results WBC 12.87 k/cumm (4.4-10.8) H 12/26/17 06:34 RBC 3.76 m/cumm (4.00-5.20) L 12/26/17 06:34 Hgb 11.5 g/dL (12.0-15.5) L 12/26/17 06:34 Hct 35.0 % (36.0-46.0) L 12/26/17 06:34 MCV 93.1 fL (80-95) 12/26/17 06:34 MCH 30.6 pg (27.0-33.0) 12/26/17 06:34 MCHC 32.9 g/dL (32.0-36.0) 12/26/17 06:34 RDW 12.6 % (11.7-14.6) 12/26/17 06:34 Plt Count 200 x1000/uL (130-400) 12/26/17 06:34 MPV 10.8 fL (8.0-11.0) 12/26/17 06:34 Immature Gran % 0.3 12/26/17 06:34 Neutrophils % 92.4 12/26/17 06:34 Lymphocytes % 5.2 12/26/17 06:34 Monocytes % 1.7 12/26/17 06:34 Eosinophils % 0.2 12/26/17 06:34 Basophils % 0.2 12/26/17 06:34 Absolute Neutrophils 11.89 k/cumm (1.2-6.7) H 12/26/17 06:34 Absolute Lymphocytes 0.67 k/cumm (1.2-3.4) L 12/26/17 06:34 Absolute Monocytes 0.22 k/cumm (0.11-0.7) 12/26/17 06:34 Absolute Eosinophils 0.03 k/cumm (0.0-0.7) 12/26/17 06:34 Absolute Basophils 0.03 k/cumm (0.0-0.2) 12/26/17 06:34 Xanthochromia Absent 12/25/17 18:50 Sodium 141 mmol/L (136-145) 12/26/17 06:34 Potassium 4.1 mmol/L (3.5-5.1) 12/26/17 06:34 Chloride 108 mmol/L (98-107) H 12/26/17 06:34 Carbon Dioxide 23.2 mmol/L (21.0-32.0) 12/26/17 06:34 Anion Gap 9.8 mmol/L (3-11) 12/26/17 06:34 BUN 9 mg/dL (7-18) 12/26/17 06:34 Creatinine 0.52 mg/dL (0.55-1.02) L D 12/26/17 06:34 Estimated GFR/1.73 m2 >= 60.00 (mL/min/1.73m2) 12/26/17 06:34 Glucose 161 mg/dL (70-100) H 12/26/17 06:34 Lactate 0.9 mmol/L (0.6-1.4) 12/25/17 17:50 Calcium 8.0 mg/dL (8.5-10.1) L 12/26/17 06:34 Total Bilirubin 0.6 mg/dL (0.2-1.0) 12/25/17 17:50 AST 21 U/L (15-37) 12/25/17 17:50 ALT 33 U/L (12-78) 12/25/17 17:50 Alkaline Phosphatase 78 U/L (46-116) 12/25/17 17:50 Total Protein 8.0 g/dL (6.4-8.2) 12/25/17 17:50 Albumin 4.1 g/dL (3.4-5.0) 12/25/17 17:50 CSF Tube Number 4 12/25/17 18:50 CSF Color Colorless 12/25/17 18:50 CSF Clarity Clear 12/25/17 18:50 CSF WBC 3 /mm3 (0-5) 12/25/17 18:50 CSF RBC 2 /mm3 (0-5) 12/25/17 18:50 CSF Neutrophils Cancelled 12/25/17 18:50 CSF Lymphocytes Cancelled 12/25/17 18:50 CSF Monos/Macrophages Cancelled 12/25/17 18:50 CSF Other Cells % (0-0) 12/25/17 18:50 CSF Diff Comment 12/25/17 18:50 CSF Glucose 66 mg/dL (40-70) 12/25/17 18:50 CSF Total Protein 35 mg/dL (15-45) 12/25/17 18:50 HHV-6 DNA (PCR) Cancelled 12/25/17 18:50
--- NOTE | 2017-12-26 14:00 | PHARADMIT ---
Addendum entered by Adria Scruggs III 12/27/17 10:53: Pharmacy Note Subjective MD has determined patiens illness is not bacterial, (Nir&Julianna dc'd) If viral Acyclovir IV continues. Patient is symptom freee (no seizures, no neck pain) at present. Objective VS-OK K+3.3 SCr-0.79 WBC-15.22 H&H-10.4/32.1 Plts-218 Assessment On Lovenox Plan Possible discharge tomorrow id she remains symptom free. Original Note: Admission Pharmacy Clinical Review SEIZURES/MENINGITIS Code Status Full Code Current Weight Wgt-84.9 kg Renally Cleared and Narrow Therapeutic Index Meds CrCl~ 94.44 mL/min Meds- OK QTc Value / Action Taken NA BP Control, Fever BP- 118/63 Tmax- 37.4C Electrolytes reviewed Na- 141 K+4.1 DVT Prophylaxis No Opiate Usage / Scheduled Bowel Regimen Ordered No Yes Plt/SCr for Heparin / Enoxaparin Plts-200 SCr- 0.52 INR for Warfarin NA H/H stable, WBC/Bands H&H- 11.5/35.0 WBC- 12.87 Antibiotic appropriateness Acyclovir, Cipro,Vancomycin Cultures and Sensitivities CSF, Blood -Pending Surgical ABX d/c within 24 hr NA DM control / Insulin Dosing BG- 161 Heart Failure (Check EF%) (LICO's, B-Block, Diuretics) NONE IV to PO Switch No Home Meds Reviewed Yes Home Meds Not Ordered Multivites, Vit-D, Comments Trough 12/27@ 7AM
[2017-12-26] MEDS: Normal Saline 1,000 ML 75 ML IV (16:32)
[2017-12-26] MEDS: Enoxaparin 40 MG/0.4 ML SYR SC (18:37)
[2017-12-27] VITALS (24 sets, daily range): BP systolic 103–120; BP diastolic 50–70; PULSE 67–97; RESP 16–20; TEMP 36.5–36.9; O2SAT 95–99
[2017-12-27] MEDS: VANCOMYCIN 1,250 MG in Normal Saline 250 ML 166.7 MG IVPB (00:47)
[2017-12-27] MEDS: CIPROFLOXACIN 400 MG/200 ML BAG 200 MG IVPB (06:46)
[2017-12-27 07:50] LABS: HCT 32.1 % (36.0-46.0); HGB 10.4 g/dL (12.0-15.5); Mean Corp. HGB Concentration 32.4 g/dL (32.0-36.0); Mean Corpuscular Hemoglobin 30.6 pg (27.0-33.0); Mean Corpuscular Volume 94.4 fL (80-95); Mean Platelet Volume 10.2 fL (8.0-11.0); Platelet Count 218 x1000/uL (130-400); White Blood Cell Count 15.22 k/cumm (4.4-10.8)
[2017-12-27 08:02] LABS: Anion Gap 8.9 mmol/L (3-11); BUN 7 mg/dL (7-18); CO2 27.1 mmol/L (21.0-32.0); CREATININE 0.79 mg/dL (0.55-1.02); Calcium 7.9 mg/dL (8.5-10.1); Chloride 108 mmol/L (98-107); Glucose 145 mg/dL (70-100); Potassium 3.3 mmol/L (3.5-5.1); Sodium 144 mmol/L (136-145)
[2017-12-27 08:09] LABS: Vancomycin, Trough 16.3 ug/mL (10.0-20.0)
[2017-12-27] MEDS: Gabapentin 300 MG CAP PO ×3 (08:21→20:28)
[2017-12-27] MEDS: POTASSIUM CHLORIDE 20 MEQ, POTASSIUM CHLORIDE 10 MEQ 30 MEQ PO (09:32)
--- NOTE | 2017-12-27 12:13 | PGE_ITS ---
Assessment and Plan (1) Meningitis: Current visit: Yes Status: Acute Her neck pain has resolved. She still has a leukocytosis but I believe this is related to a dose of steroids she received in the emergency room. Overall her clinical exam is markedly improved. This appears to have been a viral related illness. HSV and West Nile titers are pending. Will check a Lyme /tick panel to be sure this is not related to an arthropod related illness. Will continue on acyclovir with serology pending. (2) Asperger's disorder: Current visit: Yes Status: Acute She continues to have multiple somatic complaints. This morning she describes some swallowing difficulty that occurred with her evening meal, pot roast. She ate breakfast fine. There is been no choking. Mild cognitive deficits are apparent. (3) Seizure disorder: Current visit: Yes Status: Acute No further seizure activity. She is on both gabapentin and Keppra. Continue present meds (4) Discharge planning issues: Current visit: Yes Status: Acute We are stopping the vancomycin and ciprofloxacin. Monitor overnight for recurrent fever or meningeal signs. Likely discharge tomorrow if she is stable. (5) Hypokalemia: Current visit: Yes Status: Acute Subjective Patient reports: no new complaints Interval history since last seen: Patient states she is doing much better. She denies any problems with neck pain or stiffness. No headache. No vision problems. There is been no seizure activity in the last 24 hours. Denies fever chills or rigors. She is eating and drinking fine. Exam Const General: cooperative, healthy appearing, comfortable and no acute distress Orientation: alert and awake Eyes Pupils: normal by confrontation Neck Neck: normal visual inspection, full ROM, supple, no anterior neck swelling, negative Brudzinski's sign, negative Kernig's sign and nontender Chest Chest: normal inspection of the chest Resp Effort & Inspection: normal respiratory effort Auscultation: clear to auscultation bilaterally Cardio Rate: regular rate Rhythm: regular rhythm Heart Sounds: S1 normal, S2 normal and no murmurs GI Inspection: normal to inspection Palpation: soft and nontender Skin General skin exam: no rashes or lesions noted Neuro General: alert and awake Cranial Nerves: CN's II-XI intact bilaterally Cognition: normal cognition Motor: no movement abnormalities noted Extrem General: no clubbing, cyanosis or edema Objective Objective Clinical Data: Abnormal lab results 12/27/17 12/27/17 Range/Units 07:15 07:15 WBC 15.22 H (4.4-10.8) k/cumm RBC 3.40 L (4.00-5.20) m/cumm Hgb 10.4 L (12.0-15.5) g/dL Hct 32.1 L (36.0-46.0) % Potassium 3.3 L (3.5-5.1) mmol/L Chloride 108 H (98-107) mmol/L Glucose 145 H (70-100) mg/dL Calcium 7.9 L (8.5-10.1) mg/dL Vital Signs Temperature 36.6 C 12/27/17 09:10 Temperature Source Temporal Artery Scan 12/27/17 09:10 Pulse 82 12/27/17 08:14 Pulse Rhythm Regular 12/27/17 08:27 Pulse 99 H 12/25/17 23:02 Respiratory Rate 14 12/26/17 23:05 Respiratory Effort 12/27/17 08:27 Respiratory Depth Normal 12/27/17 08:27 Respiratory Pattern Normal 12/27/17 08:27 Blood Pressure 103/53 L 12/27/17 08:14 Blood Pressure Mean 65 12/27/17 08:14 Blood Pressure Position Supine 12/25/17 23:26 Pulse Oximetry 99 12/27/17 08:30 Oxygen Delivery Method Room Air 12/27/17 08:30 Oxygen Flow Rate 0 12/27/17 08:30 Pain Level 0 12/27/17 02:32 Comment 12/27/17 00:55 Intake & Output 12/26/17 12/27/17 12/27/17 23:59 11:59 23:59 Intake Total 2840 / 2840 1296.667 / 1296.667 Output Total 1900 / 1900 2500 / 2500 Balance 940 / 940 -1203.333 / -1203.333 Weight 84.3 kg Intake: IV 1999 1196.667 / 1196.667 Oral 840 / 840 100 / 100 Output: Urine 1900 / 1900 2500 / 2500 Other: Urine Color Yellow Light Prisca Urine Appearance Cloudy Urine Odor None Normal Comment approx 700 mixed with stool Stool Size Moderate Moderate Stool Characteristics Soft Soft Formed Formed Brown Brown Voiding Methods Bedside Commode Bedside Commode Laboratory Results WBC 15.22 k/cumm (4.4-10.8) H 12/27/17 07:15 RBC 3.40 m/cumm (4.00-5.20) L 12/27/17 07:15 Hgb 10.4 g/dL (12.0-15.5) L 12/27/17 07:15 Hct 32.1 % (36.0-46.0) L 12/27/17 07:15 MCV 94.4 fL (80-95) 12/27/17 07:15 MCH 30.6 pg (27.0-33.0) 12/27/17 07:15 MCHC 32.4 g/dL (32.0-36.0) 12/27/17 07:15 RDW 13.0 % (11.7-14.6) 12/27/17 07:15 Plt Count 218 x1000/uL (130-400) 12/27/17 07:15 MPV 10.2 fL (8.0-11.0) 12/27/17 07:15 Immature Gran % 0.3 12/26/17 06:34 Neutrophils % 92.4 12/26/17 06:34 Lymphocytes % 5.2 12/26/17 06:34 Monocytes % 1.7 12/26/17 06:34 Eosinophils % 0.2 12/26/17 06:34 Basophils % 0.2 12/26/17 06:34 Absolute Neutrophils 11.89 k/cumm (1.2-6.7) H 12/26/17 06:34 Absolute Lymphocytes 0.67 k/cumm (1.2-3.4) L 12/26/17 06:34 Absolute Monocytes 0.22 k/cumm (0.11-0.7) 12/26/17 06:34 Absolute Eosinophils 0.03 k/cumm (0.0-0.7) 12/26/17 06:34 Absolute Basophils 0.03 k/cumm (0.0-0.2) 12/26/17 06:34 Xanthochromia Absent 12/25/17 18:50 Sodium 144 mmol/L (136-145) 12/27/17 07:15 Potassium 3.3 mmol/L (3.5-5.1) L 12/27/17 07:15 Chloride 108 mmol/L (98-107) H 12/27/17 07:15 Carbon Dioxide 27.1 mmol/L (21.0-32.0) 12/27/17 07:15 Anion Gap 8.9 mmol/L (3-11) 12/27/17 07:15 BUN 7 mg/dL (7-18) 12/27/17 07:15 Creatinine 0.79 mg/dL (0.55-1.02) 12/27/17 07:15 Estimated GFR/1.73 m2 >= 60.00 (mL/min/1.73m2) 12/27/17 07:15 Glucose 145 mg/dL (70-100) H 12/27/17 07:15 Lactate 0.9 mmol/L (0.6-1.4) 12/25/17 17:50 Calcium 7.9 mg/dL (8.5-10.1) L 12/27/17 07:15 Total Bilirubin 0.6 mg/dL (0.2-1.0) 12/25/17 17:50 AST 21 U/L (15-37) 12/25/17 17:50 ALT 33 U/L (12-78) 12/25/17 17:50 Alkaline Phosphatase 78 U/L (46-116) 12/25/17 17:50 Total Protein 8.0 g/dL (6.4-8.2) 12/25/17 17:50 Albumin 4.1 g/dL (3.4-5.0) 12/25/17 17:50 CSF Tube Number 4 12/25/17 18:50 CSF Color Colorless 12/25/17 18:50 CSF Clarity Clear 12/25/17 18:50 CSF WBC 3 /mm3 (0-5) 12/25/17 18:50 CSF RBC 2 /mm3 (0-5) 12/25/17 18:50 CSF Neutrophils Cancelled 12/25/17 18:50 CSF Lymphocytes Cancelled 12/25/17 18:50 CSF Monos/Macrophages Cancelled 12/25/17 18:50 CSF Other Cells % (0-0) 12/25/17 18:50 CSF Diff Comment 12/25/17 18:50 CSF Glucose 66 mg/dL (40-70) 12/25/17 18:50 CSF Total Protein 35 mg/dL (15-45) 12/25/17 18:50 Vancomycin Trough 16.3 ug/mL (10.0-20.0) 12/27/17 07:15 HHV-6 DNA (PCR) Cancelled 12/25/17 18:50 Objective Narrative Objective Narrative: CS F culture no growth at 48-hours Blood culture results no growth West Nile virus and HSV titers pending
--- NOTE | 2017-12-27 13:04 | PDOC.CMPRO ---
Care Management Progress Note S/O: Tracy had just finished freshening up and was sitting up in her bed smiling and readily engaged in conversation. States she is feeling much better today and hopes she can go home soon. Mike had been in earlier to visit. A: 21 y.o. female admitted for seizures and possible meningitis P: Tracy remains at an acute level of care. IV medications have been discontinues and Physician will evaluate in the morning. Anticipate she will return home when medically cleared and no services will be needed. , Mike, will transport.
[2017-12-27] MEDS: Enoxaparin 40 MG/0.4 ML SYR SC (18:25)
[2017-12-27] MEDS: Normal Saline Flush 10 ML SYR IVP (22:39)
[2017-12-28] VITALS (7 sets, daily range): BP systolic 96–114; BP diastolic 65–66; PULSE 75–84; RESP 16; TEMP 36.5–37.2; O2SAT 96–98
[2017-12-28] MEDS: Normal Saline Flush 10 ML SYR IVP (05:19)
[2017-12-28 07:10] LABS: Abs Immature Grans 0.02 k/cumm (0.0-0.09); Absolute Basophil Count 0.03 k/cumm (0.0-0.2); Absolute Eosinophil Count 0.13 k/cumm (0.0-0.7); Absolute Lymphocyte Count 2.89 k/cumm (1.2-3.4); Absolute Monocyte Count 0.42 k/cumm (0.11-0.7); Absolute Neutrophil Count 3.69 k/cumm (1.2-6.7); Basophils % 0.4; Eosinophils % 1.8; HCT 35.5 % (36.0-46.0); HGB 11.3 g/dL (12.0-15.5); Immature Grans % 0.3; Lymphocytes % 40.3; Mean Corp. HGB Concentration 31.8 g/dL (32.0-36.0); Mean Corpuscular Hemoglobin 30.1 pg (27.0-33.0); Mean Corpuscular Volume 94.4 fL (80-95); Mean Platelet Volume 9.8 fL (8.0-11.0); Monocytes % 5.8; Neutrophils % 51.4; Platelet Count 255 x1000/uL (130-400); RBC 3.76 m/cumm (4.00-5.20); RBC Distribution Width 12.9 % (11.7-14.6); White Blood Cell Count 7.18 k/cumm (4.4-10.8)
[2017-12-28 07:16] LABS: BUN 7 mg/dL (7-18); CREATININE 0.75 mg/dL (0.55-1.02); Calcium 8.9 mg/dL (8.5-10.1); Chloride 103 mmol/L (98-107); Glucose 97 mg/dL (70-100); Magnesium 1.8 mg/dL (1.8-2.4); Potassium 3.5 mmol/L (3.5-5.1); Sodium 141 mmol/L (136-145)
[2017-12-28] MEDS: Gabapentin 300 MG CAP PO (08:27)
--- NOTE | 2017-12-28 09:06 | PDOC.CMDIS ---
LACE Index Scoring Tool - Questions: Length of Stay (in days): 1 Acuity (Admit via E.D.?): Yes E.D. Visits: 1 - Answers: Total Score: 5 Risk of Readmission: Low Risk Care Management Discharge Reason for Hospitalization: Seizures, meningitis. Discharge Plan: Tracy will return home when medically cleared for discharge. No services needed at this tike. Mike will transport her by car.
--- NOTE | 2017-12-28 12:05 | W.PM.DS.N ---
Date of service: 12/28/17 Time of Service: 12:05 DS: Diagnosis Discharge Diagnosis (1) Meningitis: Status: Acute Asessment and Plan: Appears to be viral meningitis. HSV and West Nile titers pending. Bacterial cultures negative in spinal fluid and blood. Discharged on no antibiotic or antiviral therapy. Recovery appears to be complete at this time. (2) Asperger's disorder: Status: Acute Asessment and Plan: Stable. No changes. (3) Seizure disorder: Status: Acute Asessment and Plan: Petit mall seizures observed x1 during this admission. Keppra was added to gabapentin. Follow-up Dr. Uribe 12/30/2017 as scheduled. (4) Discharge planning issues: Status: Acute (5) Hypokalemia: Status: Acute Asessment and Plan: Discussed adding potassium to her diet. She does not eat fruits and vegetables enough. Discharge Plan Disposition Patient Disposition: HOME Condition: Stable Discharge Details Reason For Visit: SEIZURES/MENINGITIS Admit Date/Time: 12/27/17 09:33 Admit Provider: Dwayne Ibarra Attending Provider: Dwayne Ibarra Primary Care Provider: Stalin Newell Hospital Course Hospital Course: 22-year-old female admitted acutely with seizures and neck stiffness consistent with meningitis. She had fever up to 39.3, she was having several petit mall seizures in succession. She had an LP in the emergency room that showed 3 white cells 2 red cells, culture negative. HSV and West Nile PCR pending. She was admitted to the ICU and put on Keppra, vancomycin, ciprofloxacin, acyclovir. She defervesced and her clinical exam improved. She had one petit mal seizure during her stay. Cultures have remained negative she is discharged on p.o. Keppra 500 mg twice daily. Home Meds and New Rx's Prescriptions: New levetiracetam [Keppra] 500 mg Tablet 500 mg PO BID Qty: 60 RF: 0 Continue gabapentin 300 mg Capsule 1 cap PO TID RF: 0 multivitamin Tablet 1 tab PO DAILY RF: 0 cholecalciferol (vitamin D3) [Vitamin D3] 1,000 unit Capsule 1 tab PO DAILY RF: 0 Changed ibuprofen 200 mg Capsule 800 mg PO BID PRN (Reason: fever or pain) Qty: 0 RF: 0 Discharge Instructions Instructions: Viral Meningitis (DC), Recurrent Seizures in Adults (GEN) Referrals: Leann Lester MD [ [facility] STAFF PHYSICIAN] - 12/30/17 12:00 am (as scheduled) Activity:: Activity as Tolerated Equipment/Supplies:: No Equipment Needed Diet:: As Tolerated Discharge Orders Discharge Orders: Discharge Order (Routine); Ordered 12/28/17 Ordered By: Dwayne Ibarra Discharge Data Discharge Date/Time-TO BE ENTERED AT DEPARTURE: 12/28/17 10:45 Exam Narrative Exam Narrative: At the time of discharge she was sitting upright and alert with no complaints. No neck stiffness no headache no vision problems. She had not had any petit mall seizures in greater than 48 hours. No breathing difficulty no chest pain no shortness of breath. Appetite was back to normal. No neurologic deficits. DS: Data Vitals/I&O Vitals and I&O: Vital Signs Temperature 36.9 C 12/28/17 08:29 Temperature Source Temporal Artery Scan 12/28/17 08:29 Pulse 78 12/28/17 08:29 Pulse Rhythm Regular 12/28/17 08:31 Pulse 99 H 12/25/17 23:02 Respiratory Rate 16 12/28/17 08:29 Respiratory Effort 12/28/17 08:31 Respiratory Depth Normal 12/28/17 08:31 Respiratory Pattern Normal 12/28/17 08:31 Blood Pressure 96/65 L 12/28/17 08:29 Blood Pressure Mean 72 12/28/17 08:18 Blood Pressure Position Supine 12/25/17 23:26 Pulse Oximetry 98 12/28/17 08:29 Oxygen Delivery Method Room Air 12/28/17 08:29 Oxygen Flow Rate 0 12/28/17 08:29 Pain Level 0 12/28/17 10:46 Comment 12/27/17 00:55 Intake & Output 12/27/17 12/28/17 12/28/17 23:59 11:59 23:59 Intake Total 2621 / 2621 1220 / 1220 Output Total 4025 / 4025 2800 / 2800 Balance -1404 / -1404 -1580 / -1580 Weight 84.3 kg Intake: IV 520 / 520 260 / 260 Oral 2101 / 2101 960 / 960 Output: Urine 4025 / 4025 2800 / 2800 Other: Urine Color Light Prisca Yellow Urine Appearance Clear Clear Urine Odor Normal None Comment mixed w/ small amout of stool Stool Size Small Small Stool Characteristics Soft Soft Formed Formed Brown Voiding Methods Bedside Commode Bedside Commode Labs on day of discharge: Labs from last 24 hours 12/28/17 12/28/17 12/25/17 06:50 06:50 18:50 WBC 7.18 D RBC 3.76 L Hgb 11.3 L Hct 35.5 L MCV 94.4 MCH 30.1 MCHC 31.8 L RDW 12.9 Plt Count 255 MPV 9.8 Immature Gran % 0.3 Neutrophils % 51.4 Lymphocytes % 40.3 Monocytes % 5.8 Eosinophils % 1.8 Basophils % 0.4 Absolute Neutrophils 3.69 Absolute Lymphocytes 2.89 Absolute Monocytes 0.42 Absolute Eosinophils 0.13 Absolute Basophils 0.03 Sodium 141 Potassium 3.5 Chloride 103 Carbon Dioxide 30.0 Anion Gap 8.0 BUN 7 Creatinine 0.75 Estimated GFR/1.73 m2 >= 60.00 Glucose 97 Calcium 8.9 Magnesium 1.8 AFB Source (see note) AFB Culture Final Res (see note) AFB Report Status (see note) AFB Smear (Ref Lab) (see note) Preliminary micro results at discharge 12/25/17 18:50 Body Fluid Culture - Preliminary Cerebrospinal Fluid 12/25/17 18:33 Blood Culture - Preliminary Blood NO GROWTH 48 HOURS 12/25/17 17:50 Blood Culture - Preliminary Blood NO GROWTH 48 HOURS
[2017-12-28 22:06] LABS: Specimen Source CSF; West Nile Virus PCR Negative (Negative)
[2017-12-29 10:03] LABS: HSV 1 PCR Negative (Negative); Specimen Source CSF
[2017-12-29 10:04] LABS: HSV 2 PCR Negative (Negative)
== END 2017-12-28 10:45 | disposition home or self-care (01) | DRG 75 ==
LOC: ER 22:16 → ICU 23:24
PROVIDERS: Internal Medicine; Nurse Practitioner; Admitting Provider Family Medicine; Emergency Provider Student in an Organized Health Care Education/Training Program; PCP Specialist/Technologist Athletic Trainer; Visit Provider Family Medicine
DX: A87.9 Viral meningitis, unspecified (principal); F84.5 Asperger's syndrome; G40.909 Epilepsy, unspecified, not intractable, without status epilepticus; E87.6 Hypokalemia
CPT/HCPCS: 36415; 62270; 80048; 80053; 82945; 85027; 87040; 87116; 87206; 87798; 89050; 89051; 93005; 96361; 96365; 96366; 96367; 96368; 96375; 99232; 99236; 99239; 99285; J1650; 70450; 70551; 71045; 80202; 83605; 83735; 84157; 85025; 87070; 87205; 87529; 87532; 93010; 99220; G0378; J0133; J0744; J1200; J1953; J2930

== ENCOUNTER 2018-01-13 16:49 | Outpatient (RCR) | payer MEDICAID, SELFPAY ==
[2018-01-13 21:26] LABS: Iron 32 ug/dL (50-175); Total Iron Binding Capacity 286 ug/dL (250-450); Transferrin Sat 11 % (15-50)
[2018-01-13 21:30] LABS: Prothrombin Time 10.1 sec (9.3-10.8)
[2018-01-13 21:38] LABS: Abs Immature Grans 0.02 k/cumm (0.0-0.09); Absolute Basophil Count 0.04 k/cumm (0.0-0.2); Absolute Eosinophil Count 0.15 k/cumm (0.0-0.7); Absolute Lymphocyte Count 3.18 k/cumm (1.2-3.4); Absolute Monocyte Count 0.62 k/cumm (0.11-0.7); Absolute Neutrophil Count 3.12 k/cumm (1.2-6.7); Basophils % 0.6; Eosinophils % 2.1; HCT 37.2 % (36.0-46.0); HGB 11.8 g/dL (12.0-15.5); Immature Grans % 0.3; Lymphocytes % 44.6; Mean Corp. HGB Concentration 31.7 g/dL (32.0-36.0); Mean Corpuscular Hemoglobin 29.9 pg (27.0-33.0); Mean Corpuscular Volume 94.4 fL (80-95); Mean Platelet Volume 11.1 fL (8.0-11.0); Monocytes % 8.7; Neutrophils % 43.7; Platelet Count 307 x1000/uL (130-400); RBC 3.94 m/cumm (4.00-5.20); RBC Distribution Width 13.2 % (11.7-14.6); White Blood Cell Count 7.13 k/cumm (4.4-10.8)
[2018-01-13 21:54] LABS: Anion Gap 8.5 mmol/L (3-11); BUN 8 mg/dL (7-18); CO2 28.5 mmol/L (21.0-32.0); CREATININE 0.79 mg/dL (0.55-1.02); Calcium 9.4 mg/dL (8.5-10.1); Chloride 104 mmol/L (98-107); Ferritin 65 ng/mL (8-388); Glucose 96 mg/dL (70-100); Magnesium 1.7 mg/dL (1.8-2.4); Potassium 3.6 mmol/L (3.5-5.1); Sodium 141 mmol/L (136-145); Vitamin B12 866 pg/mL (193-986)
[2018-01-13 22:12] LABS: C-Reactive Protein 0.41 mg/dL (0.0-0.3)
[2018-01-13 22:16] LABS: ESR 19 MM/HR (0-20)
[2018-01-15 10:04] LABS: Cyclic Citrullinated Peptide <2.5 U/mL (<5.0)
[2018-01-15 11:55] LABS: Rheumatoid Factor <8 IU/mL (<12.5)
[2018-01-15 13:58] LABS: ANA Interpretation Negative (NEGAT)
== END 2018-01-21 23:59 | disposition home or self-care (01) ==
LOC: NCHCN 16:49
PROVIDERS: PCP Specialist/Technologist Athletic Trainer; Visit Provider Nurse Practitioner Family
DX: R53.83 Other fatigue (principal); R56.9 Unspecified convulsions; G43.909 Migraine, unspecified, not intractable, without status migrainosus; M25.50 Pain in unspecified joint; F17.210 Nicotine dependence, cigarettes, uncomplicated; R23.8 Other skin changes; R20.2 Paresthesia of skin
CPT/HCPCS: 80048; 85652; 86200; 82607; 82728; 83540; 83550; 83735; 85025; 85610; 86038; 86140; 86431

== ENCOUNTER 2018-01-20 05:47 | Outpatient (CLI) | payer MEDICAID, SELFPAY ==
--- NOTE | 2018-01-20 13:44 | DI.RAD_ITS ---
SYMPTOMS/DIAGNOSIS: SCOLIOSIS, IDIOPATHIC, M41.20 SCOLIOSIS SURVEY: There is a left convex scoliosis of the thoracolumbar spine. Garcia's angle is 13.5 degrees as measured from the inferior endplate of T9 to the inferior endplate of L3. The vertebral bodies have a normal appearance. The paraspinal lines are intact. IMPRESSION: Left convex scoliosis of the thoracolumbar spine.
== END 2018-01-20 06:07 ==
PROVIDERS: PCP Nurse Practitioner Family; Visit Provider Nurse Practitioner Family
DX: M41.25 Other idiopathic scoliosis, thoracolumbar region (principal)
CPT/HCPCS: 72081

== ENCOUNTER 2018-02-25 13:07 | Outpatient (CLI) | payer MEDICAID, SELFPAY ==
[2018-02-25 14:12] LABS: Abs Immature Grans 0.02 k/cumm (0.0-0.09); Absolute Basophil Count 0.05 k/cumm (0.0-0.2); Absolute Eosinophil Count 0.21 k/cumm (0.0-0.7); Absolute Lymphocyte Count 2.15 k/cumm (1.2-3.4); Absolute Monocyte Count 0.54 k/cumm (0.11-0.7); Absolute Neutrophil Count 5.84 k/cumm (1.2-6.7); Basophils % 0.6; Eosinophils % 2.4; Immature Grans % 0.2; Lymphocytes % 24.4; Mean Corp. HGB Concentration 33.3 g/dL (32.0-36.0); Mean Corpuscular Hemoglobin 30.6 pg (27.0-33.0); Mean Corpuscular Volume 91.8 fL (80-95); Monocytes % 6.1; Neutrophils % 66.3; Platelet Count 257 x1000/uL (130-400); RBC 3.92 m/cumm (4.00-5.20); RBC Distribution Width 12.9 % (11.7-14.6); White Blood Cell Count 8.81 k/cumm (4.4-10.8)
[2018-02-25 14:35] LABS: HCG Qual (Urine) Negative
[2018-02-25 14:52] LABS: ESR 24 MM/HR (0-20)
[2018-02-25 16:14] LABS: ALT 31 U/L (12-78); AST 23 U/L (15-37); Albumin 4.3 g/dL (3.4-5.0); Alkaline Phosphatase 77 U/L (46-116); Anion Gap 9.3 mmol/L (3-11); BUN 9 mg/dL (7-18); Bilirubin, Total 0.3 mg/dL (0.2-1.0); C-Reactive Protein 1.05 mg/dL (0.0-0.3); CO2 28.7 mmol/L (21.0-32.0); Calcium 9.3 mg/dL (8.5-10.1); Chloride 103 mmol/L (98-107); Creatine Kinase 142 U/L (26-192); Glucose 89 mg/dL (70-100); Potassium 3.8 mmol/L (3.5-5.1); Sodium 141 mmol/L (136-145); Total Protein 7.5 g/dL (6.4-8.2)
[2018-02-26 06:24] LABS: Vitamin D 25 Total 34.2 ng/ml (30-100)
[2018-02-26 09:53] LABS: Hepatitis B Surface Ag Negative (NEGAT)
[2018-02-26 10:10] LABS: Cyclic Citrullinated Peptide <2.5 U/mL (<5.0)
[2018-02-26 10:52] LABS: Hepatitis C Ab w Rflx HCV PCR Negative (NEGAT)
[2018-02-26 10:56] LABS: HBs Antibody, Quant <3.1 mIU/mL; Hepatitis B Surface Ab Negative
[2018-02-26 12:53] LABS: Rheumatoid Factor <8 IU/mL (<12.5)
[2018-02-26 14:45] LABS: Chlamydia Result Negative; GC Result Negative; Specimen Description URINE
[2018-02-27 13:28] LABS: TB Interpretation Negative (NEGAT); TB2 Ag minus Nil 0.01 IU/mL
[2018-02-27 15:04] LABS: HLA-B27 Result Negative
== END 2018-02-25 13:27 ==
PROVIDERS: PCP Nurse Practitioner Family; Visit Provider Internal Medicine
DX: M25.551 Pain in right hip (principal); M25.552 Pain in left hip; G89.29 Other chronic pain; M54.5 Low back pain; M46.1 Sacroiliitis, not elsewhere classified
CPT/HCPCS: 36415; 80053; 82306; 82550; 85652; 86200; 86706; 86803; 86812; 87340; 87491; 87591; 81025; 85025; 86140; 86431; 86480; 86704

== ENCOUNTER 2018-04-24 01:00 | Outpatient (CLI) | payer MEDICAID, SELFPAY ==
--- NOTE | 2018-04-28 11:30 | PDOC.EEG_ITS ---
EEG: [facility] Department of Neurology LONG-TERM AMBULATORY EEG REPORT Date of Recordin04/24/18 at 10:35:35 to 04/25/18 at 12:02:51 Interpreting Physician: Dr. Leann Lester PCP/Referring Provider: Ina Valverde NP Reason for study: Ms. 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 Current Medications: cholecalciferol (vitamin D3) [Vitamin D3] 1 tab PO DAILY 12/25/17 multivitamin 1 tab PO DAILY 12/25/17 ibuprofen 800 mg PO BID PRN #0 cap 12/28/17 venlafaxine ER 37.5 mg capsule,extended release 24 hr 37.5 mg PO HS #30 cap 12/30/17 levetiracetam 500 mg tablet 500 mg PO BID #60 tab 01/26/18 METHODS: An 18-channel digitized electroencephalogram was recorded in the ambulatory setting with video. The 10/20 international system of electrode placement was used and bipolar and referential electrode montages were recorded. In addition to EEG the patient was monitored for EKG and by video. Activation procedures of photic stimulation and hyperventilation were performed if applicable. The duration of the recording was ~25.5 hours. DESCRIPTION OF EEG: Waking background activity: During maximal wakefulness a 9-Hz posterior background rhythm was present which was well-modulated, symmetrical, reactive to eye opening, and of moderate voltage. Faster frequencies were present in the bilateral anterior head regions. There was a normal anterior-posterior voltage gradient. Drowsy and sleeping background activity: During drowsiness, there was atten uation of the posterior dominant background rhythm and vertex waves. Normal stage II and III sleep was present with symmetrical sleep spindles, K-complexes, and vertex waves with slowing of the background rhythm to delta/theta frequencies. REM sleep manifested by rapid lateral eye movements and faster background rhythms was recorded. Arousal was unremarkable. Interictal abnormalities: none. Ictal findings: Event #1 on 04/24/18 at 20:27:53 and 20:28:29 -Clinical manifestations: No reported symptoms. -EEG findings: No epileptiform activity or other abnormality. Activating Procedures: Photic stimulation was performed which produced a symmetrical posterior driving response at various flash frequencies. Hyperventilation was performed with moderate effort and produced mild physiological slowing of the background. EKG: EKG revealed normal sinus rhythm. INTERPRETATION: This long-term EEG is normal during the awake and sleep states as well as during the activation procedures. There were 2 button pushes around the same time, but no reported symptoms. I called patient's mother but was unable to get ahold of her to get further clarification. PRIOR EEG: none CLINICAL CORRELATION: No focal regions of cerebral dysfunction or epileptiform activity was present. Epilepsy remains a clinical diagnosis and a normal EEG does not rule out epilepsy. Clinical correlation is advised. Leann Lester MD
== END 2018-04-24 01:20 ==
PROVIDERS: PCP Nurse Practitioner Family; Visit Provider Psychiatry & Neurology Neurology
DX: G40.919 Epilepsy, unspecified, intractable, without status epilepticus (principal)
CPT/HCPCS: 95953

== ENCOUNTER 2019-01-16 15:37 | Emergency (ER) | payer MEDICAID, SELFPAY ==
[2019-01-16 15:42] VITALS: BP 129/73; PULSE 72; RESP 18; TEMP 37.1; O2SAT 98
--- NOTE | 2019-01-16 16:33 | ED.GENADUL_ITS ---
Discharge Plan Disposition Patient Disposition: HOME Condition: Improving Discharge Details Chief Complaint: RespSymp Clinical Impression: Acute bronchitis Primary Care Provider: Ina Valverde ED Provider: Guicho Johnson Home Meds and New Rx's Prescriptions: Continued venlafaxine [Effexor XR] 37.5 mg capsule,extended release 24hr 37.5 mg PO HS Qty: 30 RF: 5 zonisamide 100 mg capsule See Rx Instructions PO HS Qty: 90 RF: 5 levetiracetam [Keppra] 500 mg tablet 500 mg PO BID Qty: 60 RF: 11 multivitamin Tablet 1 tab PO DAILY RF: 0 cholecalciferol (vitamin D3) [Vitamin D3] 1,000 unit Capsule 1 tab PO DAILY RF: 0 ibuprofen 200 mg Capsule 800 mg PO BID PRN (Reason: fever or pain) Qty: 0 RF: 0 Humira 10 mg/0.2 mL Syringe Kit SUBCUT RF: 0 Discharge Instructions Instructions: Acute Bronchitis (ED) Additional Instructions: Home to rest today. Small, frequent sips of fluids to maintain hydration Take doxycycline as prescribed. Follow-up with regular doctor if not improving in 3 to 5 days time. Return to the emergency department for any acute concerns. Medical Decision Making 23-year-old female presents from home with cough, congestion, production of green sputum over 3 to 4 days time. She is immunosuppressed for rheumatoid arthritis with Humira. She takes Keppra for seizure. Patient is well-appearing, normal vital signs, cough is noted. Given her immunosuppression, production of green sputum I do feel she merits treatment with antibiotics. She is penicillin allergic. Will treat with doxycycline. She understands homecare as well as follow-up/return precautions. HPI General Mode of arrival: ambulatory . Date/Time Provider Initiated Documentation: 01/16/19 16:24 . Limitations to Documentation: no limitations . Information obtained by: patient and family . History of Present Illness 23 year old F presents to the emergency department with the chief complaint of Cough and congestion with production of sputum, described as moderate, Quality is described as dull, and is localized to the chest. Patient reports no radiation. Patient started experiencing this day(s) and it has been constant. No relieving factors improve symptom(s), No exacerbating factors reported . Patient notes fever/chills and loss of appetite; denies nausea/vomiting. Patient did receive the following treatments prior to arrival, none Related Data Home Medications Medication Instructions Recorded Confirmed cholecalciferol (vitamin D3) 1 tab PO DAILY 12/25/17 01/16/19 [Vitamin D3] multivitamin 1 tab PO DAILY 12/25/17 01/16/19 ibuprofen 800 mg PO BID PRN #0 cap 12/28/17 01/16/19 venlafaxine 37.5 mg 37.5 mg PO HS #30 cap 12/30/17 01/16/19 capsule,extended release 24 hr zonisamide 100 mg capsule See Rx Instructions PO HS #90 cap 06/01/18 06/01/18 levetiracetam 500 mg tablet 500 mg PO BID #60 tab 08/04/18 01/16/19 Humira SUBCUT 01/16/19 Previous Rx's Medication Instructions Recorded ibuprofen 800 mg PO BID PRN #0 cap 12/28/17 venlafaxine 37.5 mg 37.5 mg PO HS #30 cap 12/30/17 capsule,extended release 24 hr zonisamide 100 mg capsule See Rx Instructions PO HS #90 cap 06/01/18 levetiracetam 500 mg tablet 500 mg PO BID #60 tab 08/04/18 Allergies Allergy/AdvReac Type Severity Reaction Status Date / Time aspirin Allergy Severe Anaphylaxsi Unverified 01/16/19 15:45 s Penicillins Allergy Severe Unverified 01/16/19 15:45 lamotrigine [From Lamictal] Allergy Intermediate Unverified 01/16/19 15:45 General Stated Complaint: RespSymp MENDY: 4 Review of Systems Narrative: No chest pain or difficulty breathing. No throwing up. No known sick contacts. 5 systems reviewed and otherwise negative [facility] Medical History Asperger's disorder (Resolved) Asperger's disorder (Chronic 11/11/12) Cognitive developmental delay (Chronic) Epilepsy (Resolved) Epilepsy (Chronic) generalized, idiopathic +/- focal +/- psychogenic Hypoglycemia Hypothyroidism (Chronic) Lesion of brain (Chronic) bifrontal hetertopias Memory impairment (Resolved) Meningitis (Resolved) Migraine headache without aura (Chronic) Seizure (Resolved) Family History Brother Seizure Daughter Seizure Mother Seizure Multiple sclerosis Ovarian cancer Cervical cancer Sister Seizure Maternal Uncle Seizure Other Bladder cancer Diabetes Social History Smoking/Tobacco Use Status: Never Alcohol Intake: current Alcohol Intake frequency: holidays/special occasions only Drug use: Never Substance use type: does not use Household members: family Housing: house Number of Children: 1 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 She has had a seizure disorder since age 2 through age 17 then after childbirth had no seizures off all meds until 2018. She smokes occasionally and drinks very rarely once or twice a month. No drugs of abuse. She is and has a 4-year-old daughter. Exam Narrative Exam Narrative: GEN: awake, alert, oriented 3. Pleasant, well groomed, interactive. HEAD: Normocephalic, atraumatic ENT: Mucous membranes moist, oropharynx unremarkable, External ear exam unremarkable EYES: PERRL, EOMI NECK: Full ROM, no TALIA, no menigismus CHEST/RESP: Nontender, clear to auscultation bilateral, cough noted CARDIOVASCULAR: RRR, no murmur, rub citlalli. 2+ Rad pulse bilateral ABDOMEN: Soft, nontender, no mass. +Bowel sounds EXT: Full ROM, no edema, no rash Neuro: Grossly normal neurologic exam, conversant, interactive. Psych: Speech fluent, thoughts congruent, affect normal Course Vital Signs Vital signs: Vital Signs Temperature 37.1 C 01/16/19 15:42 Pulse 72 01/16/19 15:42 Respiratory Rate 18 01/16/19 15:42 Blood Pressure 129/73 01/16/19 15:42 Pulse Oximetry 98 01/16/19 15:42 Temperature 37.1 C 01/16/19 15:42 Temperature Source Temporal Artery Scan 01/16/19 15:42 Pulse 72 01/16/19 15:42 Respiratory Rate 18 01/16/19 15:42 Respiratory Effort 01/16/19 16:22 Respiratory Depth Normal 01/16/19 16:22 Blood Pressure 129/73 01/16/19 15:42 Pulse Oximetry 98 01/16/19 15:42 Oxygen Delivery Method Room Air 01/16/19 15:42 Oxygen Flow Rate 0 01/16/19 15:42 Pain Level 4 01/16/19 15:42
== END 2019-01-16 16:48 | disposition home or self-care (01) ==
LOC: ER 16:41
PROVIDERS: Emergency Provider Emergency Medicine; PCP Nurse Practitioner Family
DX: J20.9 Acute bronchitis, unspecified (principal)
CPT/HCPCS: 99283

== ENCOUNTER 2019-04-13 08:07 | Emergency (ER) | payer MEDICAID, SELFPAY ==
[2019-04-13 08:12] VITALS: BP 137/79; PULSE 91; RESP 14; TEMP 36.6; O2SAT 99
[2019-04-13 08:41] LABS: Bilirubin Negative (Negative); Blood Negative (Negative); Clarity Clear (Clear); Glucose Negative (Negative); Ketones Negative (Negative); Leukocyte Esterase Small (Negative); Nitrite Negative (Negative); Urobilinogen 0.2 EU/dL (Up TO 0.2); pH 6.5 (5-8)
--- NOTE | 2019-04-13 08:43 | DI.RAD_ITS ---
EXAM: XR CHEST 2V PA LATERAL XR CHEST 2V PA LATERAL CLINICAL HISTORY: cough cough TECHNIQUE: 2D digital imaging was performed. COMPARISON: XR PORTABLE CHEST AP from 12/25/2017 FINDINGS: The heart is not enlarged. The lungs are clear and well expanded. No pleural effusion seen. Mediastin al contours appear intact. IMPRESSION: Normal chest
[2019-04-13 08:55] LABS: Bacteria Few HPF (Negative); C & S Indicated? No/Sq. Contamination; Casts Negative LPF (Negative); Crystals Negative HPF (Negative); Epithelial Cells Moderate HPF (Negative); Mucus Negative (Negative); RBC Negative HPF (0-2)
[2019-04-13 09:11] LABS: Abs Immature Grans 0.03 k/cumm (0.0-0.09); Absolute Basophil Count 0.06 k/cumm (0.0-0.2); Absolute Eosinophil Count 0.19 k/cumm (0.0-0.7); Absolute Lymphocyte Count 2.14 k/cumm (1.2-3.4); Absolute Neutrophil Count 3.56 k/cumm (1.2-6.7); Basophils % 0.9; Eosinophils % 2.9; HCT 37.9 % (36.0-46.0); HGB 12.5 g/dL (12.0-15.5); Immature Grans % 0.5 %; Mean Corpuscular Hemoglobin 30.4 pg (27.0-33.0); Mean Corpuscular Volume 92.2 fL (80-95); Mean Platelet Volume 9.6 fL (8.0-11.0); Monocytes % 7.7; Platelet Count 279 x1000/uL (130-400); RBC 4.11 m/cumm (4.00-5.20); RBC Distribution Width 11.9 % (11.7-14.6); White Blood Cell Count 6.48 k/cumm (4.4-10.8)
[2019-04-13 09:30] LABS: ALT 21 U/L (14-59); AST 17 U/L (15-37); Alkaline Phosphatase 64 U/L (46-116); Anion Gap 8.2 mmol/L (3-11); BUN 11 mg/dL (7-18); Bilirubin, Total 0.5 mg/dL (0.2-1.0); CO2 26.8 mmol/L (21.0-32.0); CREATININE 0.66 mg/dL (0.55-1.02); Calcium 9.1 mg/dL (8.5-10.1); Chloride 106 mmol/L (98-107); Glucose 99 mg/dL (74-106); Potassium 4.2 mmol/L (3.5-5.1); Sodium 141 mmol/L (136-145); Total Protein 7.8 g/dL (6.4-8.2)
--- NOTE | 2019-04-13 09:31 | W.ED.GENAD ---
Discharge Plan Disposition Patient Disposition: HOME Condition: Good Discharge Details Chief Complaint: RespSymp Clinical Impression: Atypical chest pain Primary Care Provider: Ina Valverde ED Provider: Ina Cook Home Meds and New Rx's Prescriptions: New benzonatate [Tessalon Perles] 100 mg capsule 100 mg PO BID PRN (Reason: cough) Qty: 10 RF: 0 No Action venlafaxine [Effexor XR] 37.5 mg capsule,extended release 24hr 37.5 mg PO HS Qty: 30 RF: 5 levetiracetam [Keppra] 500 mg tablet 500 mg PO BID Qty: 60 RF: 1 multivitamin Tablet 1 tab PO DAILY RF: 0 cholecalciferol (vitamin D3) [Vitamin D3] 1,000 unit Capsule 1 tab PO DAILY RF: 0 ibuprofen 200 mg Capsule 800 mg PO BID PRN (Reason: fever or pain) Qty: 0 RF: 0 Mucinex Fast-Max Congest-Cough 5-10-200 mg Tablet 2 tab PO Q4H PRNRF: 0 Discharge Instructions Instructions: Chest Pain (ED) Additional Instructions: Please follow-up promptly with your primary care doctor in the next few days. Continue ibuprofen [id number]. Ice or heat to the chest wall for discomfort. Use Tessalon Perles as prescribed for cough suppression. Drink plenty of fluids. Rest activities as tolerated. For any increase in chest pain or shortness of breath or increase in alarming or worsening symptoms have immediate reevaluation in the emergency room as discussed. Your evaluation today was very reassuring. Medical Decision Making Is a 23-year-old patient presenting to the emergency room for 4 days complaints of chest pain which she reports in the right mid side of her chest. Patient denies any obvious injury or trauma. Patient denies ill feeling throughout the last 4 days she does report associated shortness of breath dyspnea on exertion. Patient specifically reports increasing chest pain and shortness of breath when playing with her kids were cleaning the house. Patient does report reproducible chest pain with palpation of the mid and right side of her chest. Patient reports onset of cough in the last 24 hours which is dried no associated wheezing. Patient denies any headache or dizziness. Denies significant fatigue. Patient does report a mild sore throat but no associated nasal congestion, ear pain. Denies nausea, vomiting or abdominal pain. Patient denies any radiating pain. Denies back pain. Patient denies any other flulike symptoms. Patient's vital signs are stable. Patient is well-appearing in general. Patient does not use control has no significant concern of . Patient does have a history of epilepsy, Aspergers, hypothyroidism and rheumatoid arthritis. Patient was on Humira but discontinued in January. Labs obtained, d-dimer as well as troponin ordered. Chest x-ray ordered. Patient does not exhibit any flulike symptoms at this time. Is afebrile vital signs reviewed and stable EKG Reveals a heart rate of 78 with a sinus rhythm. No ST segment changes. Reviewed with Guicho Johnson. Labs are all within normal limits including d-dimer and troponin. Patient's chest x-ray is normal. Patient's pain is somewhat relieved with Tylenol. Patient has no history of drug use, appears well, pain is reproducible, patient has a very low heart score. I do not suspect cardiothoracic emergency at this time. Likely patient has chest wall etiology of pain. Precautions discussed. Encourage close follow-up with PCP. Encourage use of ibuprofen and Tylenol [id number] as Tylenol seemed helpful for her pain today. Patient reports her understanding and agrees with plan of care. Patient feels stable for discharge home at this time. The patient was stable and requested discharge. Prior to discharge, my usual and customary return precautions were reviewed with the patient - this included follow-up instructions and reasons to return to the Emergency Department if conditions worsens, does not improve as expected, or other new concerns arise. HPI General Date/Time Provider Initiated Documentation: 04/13/19 08:14. HPI Narrative: Is a 23-year-old patient presenting for 4 days complaints of anterior and right-sided chest pain associated with mild shortness of breath. Patient denies any injury or trauma. Patient denies any dizziness, lightheadedness or weakness. Patient denies any fevers or chills. Patient does report mild cough which began in the last 24 hours which is dry, nonproductive. Patient reports mild shortness of breath with exertion specifically when playing with kids or cleaning the house. Patient denies any associated nausea, diaphoresis, back pain. Patient reports chest pain is reproducible with palpation. Patient denies any drug use. Patient reports she does have a history of seizure, asperger's, hypothyroidism and rheumatoid arthritis. Patient's last Humira injection was in January. Patient denies nasal congestion, mild sore throat. Denies voice change. Denies ear pain. Denies abdominal pain, nausea, vomiting or diarrhea. Patient has been eating and drinking without difficulty. Patient reports chest pain has been constant for 4 days, mild waxing and waning but no relief of pain. Patient reports hot shower was somewhat helpful for her pain otherwise has taken no Motrin or Tylenol. Related Data Home Medications Medication Instructions Recorded Confirmed cholecalciferol (vitamin D3) 1 tab PO DAILY 12/25/17 04/13/19 [Vitamin D3] multivitamin 1 tab PO DAILY 12/25/17 04/13/19 ibuprofen 800 mg PO BID PRN #0 cap 12/28/17 04/13/19 venlafaxine 37.5 mg 37.5 mg PO HS #30 cap 12/30/17 04/13/19 capsule,extended release 24 hr levetiracetam 500 mg tablet 500 mg PO BID #60 tab 02/01/19 04/13/19 benzonatate [Tessalon Perles] 100 mg PO BID PRN #10 cap 04/13/19 [id number] 2 tab PO Q4H PRN 04/13/19 04/13/19 [Mucinex Fast-Max Congest-Cough] Previous Rx's Medication Instructions Recorded ibuprofen 800 mg PO BID PRN #0 cap 12/28/17 venlafaxine 37.5 mg 37.5 mg PO HS #30 cap 12/30/17 capsule,extended release 24 hr levetiracetam 500 mg tablet 500 mg PO BID #60 tab 02/01/19 benzonatate [Tessalon Perles] 100 mg PO BID PRN #10 cap 04/13/19 Allergies Allergy/AdvReac Type Severity Reaction Status Date / Time aspirin Allergy Severe Anaphylaxsi Unverified 01/16/19 15:45 s Penicillins Allergy Severe Unverified 01/16/19 15:45 lamotrigine [From Lamictal] Allergy Intermediate Unverified 01/16/19 15:45 General Stated Complaint: RespSymp MENDY: 3 Review of Systems All systems reviewed & are unremarkable except as noted in HPI and below Constitutional Constitutional: Denies chills, Denies fever(s), Denies headache(s) and Denies malaise ENT Ears, Nose, Mouth, and Throat: Denies headache(s), Denies nasal obstruction, Denies nasal trauma, Denies sinus pain, Denies sinus pressure and Reports sore throat Cardiovascular Cardiovascular: Reports dyspnea on exertion Respiratory Respiratory: Reports cough (dry), Reports dyspnea on exertion and Denies wheezing Gastrointestinal Gastrointestinal: Denies abdominal pain, Denies diarrhea, Denies nausea and Denies vomiting Genitourinary Genitourinary: Denies dysuria Integumentary/Breasts Skin/Breast: Denies rash Neurologic Neurologic: Denies headache(s) Allergic/Immunologic Allergic/Immunologic: Denies wheezing [facility] Medical History Asperger's disorder (Resolved) Asperger's disorder (Chronic 11/11/12) Cognitive developmental delay (Chronic) Epilepsy (Resolved) Epilepsy (Chronic) generalized, idiopathic +/- focal +/- psychogenic Hypoglycemia Hypothyroidism (Chronic) Lesion of brain (Chronic) bifrontal hetertopias Memory impairment (Resolved) Meningitis (Resolved) Migraine headache without aura (Chronic) Seizure (Resolved) Surgical History section Social History Smoking/Tobacco Use Status: Never Alcohol Intake: current Alcohol Intake frequency: holidays/special occasions only Drug use: Never Substance use type: does not use Household members: family Housing: house Number of Children: 1 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 She has had a seizure disorder since age 2 through age 17 then after childbirth had no seizures off all meds until 2018. She smokes occasionally and drinks very rarely once or twice a month. No drugs of abuse. She is and has a 4-year-old daughter. Exam Narrative Exam Narrative: CONST: Healthy appearing patient, in no acute distress. Well hydrated. Alert and oriented. HENMT: Head nomocephalic, normal to inspection. Atraumatic. Hearing grossly normal. TMs appear to have a mild effusion but no associated erythema or bulging. External canal appears normal. Minimal pharyngeal erythema. No exudate or swelling. EYES: General normal appearance. Alignment normal. Eyelids normal. Conjunctiva normal. NECK: Normal visual inspection. FROM. Trachea midline. No Midline tenderness. No cervical lymphadenopathy present CHEST: Normal insepection of the chest. RESP: Normal respiratory effort. Speaking full sentences. No cough. No audible wheezing. No retractions. Breath sounds clear and equal bilaterally. No rhonchi, rales, wheezing. CARDIO: No JVD. Regular rate and rhythm. No murmur. MUSCULOSKELETAL: Normal Gait. FROM of all extremities. No lower leg swelling bilaterally. SKIN: Normal. Dry. No rashes. NEURO: Alert and awake. Speech clear. PSYCH: Normal affect. Cooperative. Course Vital Signs Vital signs: Vital Signs Temperature 36.6 C 04/13/19 08:12 Pulse 91 H 04/13/19 08:12 Respiratory Rate 14 04/13/19 08:12 Blood Pressure 137/79 04/13/19 08:12 Pulse Oximetry 99 04/13/19 08:12 Temperature 36.6 C 04/13/19 08:12 Temperature Source Temporal Artery Scan 04/13/19 08:12 Pulse 91 H 04/13/19 08:12 Respiratory Rate 14 04/13/19 08:12 Respiratory Effort Non-Labored 04/13/19 08:15 Respiratory Depth Normal 04/13/19 08:13 Blood Pressure 137/79 04/13/19 08:12 Blood Pressure Position Sitting 04/13/19 08:12 Pulse Oximetry 99 04/13/19 08:12 Oxygen Delivery Method Room Air 04/13/19 08:12 Oxygen Flow Rate 0 04/13/19 08:12 Pain Level 7 04/13/19 08:12 Lab/Test Results Lab/Test Results: Laboratory Tests Range/Units 04/13/19 04/13/19 04/13/19 08:15 08:31 09:05 WBC (4.4-10.8) k/cumm RBC (4.00-5.20) m/cumm Hgb (12.0-15.5) g/dL Hct (36.0-46.0) % MCV (80-95) fL MCH (27.0-33.0) pg MCHC (32.0-36.0) g/dL RDW (11.7-14.6) % Plt Count (130-400) x1000/uL MPV (8.0-11.0) fL Immature Gran % % Neutrophils % Lymphocytes % Monocytes % Eosinophils % Basophils % Absolute Neutrophils (1.2-6.7) k/cumm Absolute Lymphocytes (1.2-3.4) k/cumm Absolute Monocytes (0.11-0.7) k/cumm Absolute Eosinophils (0.0-0.7) k/cumm Absolute Basophils (0.0-0.2) k/cumm Sodium (136-145) mmol/L 141 Potassium (3.5-5.1) mmol/L 4.2 Chloride (98-107) mmol/L 106 Carbon Dioxide (21.0-32.0) mmol/L 26.8 Anion Gap (3-11) mmol/L 8.2 BUN (7-18) mg/dL 11 Creatinine (0.55-1.02) mg/dL 0.66 Estimated GFR/1.73 m2 (mL/min/1.73m2) >= 60.00 Glucose (74-106) mg/dL 99 Calcium (8.5-10.1) mg/dL 9.1 Total Bilirubin (0.2-1.0) mg/dL 0.5 AST (15-37) U/L 17 ALT (14-59) U/L 21 Alkaline Phosphatase (46-116) U/L 64 Total Protein (6.4-8.2) g/dL 7.8 Albumin (3.4-5.0) g/dL 4.0 Serum HCG, Qual Cancelled Urine Color (Yellow) Yellow Urine Clarity (Clear) Clear Urine pH (5-8) 6.5 Ur Specific [place] (1.005-1.025) 1.010 Urine Protein (Negative) mg/dL Negative Urine Ketones (Negative) mg/dL Negative Urine Blood (Negative) Negative Urine Nitrite (Negative) Negative Urine Bilirubin (Negative) Negative Urine Urobilinogen (Up TO 0.2) EU/dL 0.2 Ur Leukocyte Esterase (Negative) Small H Urine RBC (0-2) HPF Negative Urine WBC (0-5) HPF 5-10 Ur Epithelial Cells (Negative) HPF Moderate Urine Crystals (Negative) HPF Negative Urine Bacteria (Negative) HPF Few Urine Casts (Negative) LPF Negative Urine Mucus (Negative) Negative Ur Culture Indicated? No/sq. contamination Urine Glucose (Negative) mg/dL Negative Range/Units 04/13/19 09:05 WBC (4.4-10.8) k/cumm 6.48 RBC (4.00-5.20) m/cumm 4.11 Hgb (12.0-15.5) g/dL 12.5 Hct (36.0-46.0) % 37.9 MCV (80-95) fL 92.2 MCH (27.0-33.0) pg 30.4 MCHC (32.0-36.0) g/dL 33.0 RDW (11.7-14.6) % 11.9 Plt Count (130-400) x1000/uL 279 MPV (8.0-11.0) fL 9.6 Immature Gran % % 0.5 Neutrophils % 55.0 Lymphocytes % 33.0 Monocytes % 7.7 Eosinophils % 2.9 Basophils % 0.9 Absolute Neutrophils (1.2-6.7) k/cumm 3.56 Absolute Lymphocytes (1.2-3.4) k/cumm 2.14 Absolute Monocytes (0.11-0.7) k/cumm 0.50 Absolute Eosinophils (0.0-0.7) k/cumm 0.19 Absolute Basophils (0.0-0.2) k/cumm 0.06 Sodium (136-145) mmol/L Potassium (3.5-5.1) mmol/L Chloride (98-107) mmol/L Carbon Dioxide (21.0-32.0) mmol/L Anion Gap (3-11) mmol/L BUN (7-18) mg/dL Creatinine (0.55-1.02) mg/dL Estimated GFR/1.73 m2 (mL/min/1.73m2) Glucose (74-106) mg/dL Calcium (8.5-10.1) mg/dL Total Bilirubin (0.2-1.0) mg/dL AST (15-37) U/L ALT (14-59) U/L Alkaline Phosphatase (46-116) U/L Total Protein (6.4-8.2) g/dL Albumin (3.4-5.0) g/dL Serum HCG, Qual Urine Color (Yellow) Urine Clarity (Clear) Urine pH (5-8) Ur Specific [place] (1.005-1.025) Urine Protein (Negative) mg/dL Urine Ketones (Negative) mg/dL Urine Blood (Negative) Urine Nitrite (Negative) Urine Bilirubin (Negative) Urine Urobilinogen (Up TO 0.2) EU/dL Ur Leukocyte Esterase (Negative) Urine RBC (0-2) HPF Urine WBC (0-5) HPF Ur Epithelial Cells (Negative) HPF Urine Crystals (Negative) HPF Urine Bacteria (Negative) HPF Urine Casts (Negative) LPF Urine Mucus (Negative) Ur Culture Indicated? Urine Glucose (Negative) mg/dL POC- Test(urine) Negative
[2019-04-13 09:39] LABS: D-Dimer 494 ng/mlFEU (<500)
[2019-04-13] MEDS: Acetaminophen 500 MG TAB 1000 MG PO (10:41)
[2019-04-13 11:23] LABS: Troponin I < 0.05 ng/Ml (<0.06)
[2019-04-13 11:56] VITALS: BP 111/60; PULSE 77; RESP 18; TEMP 37.1; O2SAT 100
[2019-04-13 16:55] VITALS: BP 111/60; PULSE 77; RESP 18; TEMP 37.1; O2SAT 100
== END 2019-04-13 12:13 | disposition home or self-care (01) ==
PROVIDERS: Emergency Provider Physician Assistant; PCP Nurse Practitioner Family
DX: R07.89 Other chest pain (principal); J02.9 Acute pharyngitis, unspecified
CPT/HCPCS: 36415; 80053; 81025; 93005; 99285; 71046; 81003; 81015; 84484; 84703; 85025; 85379; 93010

== ENCOUNTER 2019-06-11 09:12 | Outpatient (CLI) | payer MEDICAID, SELFPAY ==
--- NOTE | 2019-06-11 | DI.RAD_ITS ---
EXAM: XR CHEST 2V PA LATERAL XR CHEST 2V PA LATERAL CLINICAL HISTORY: COUGH COUGH TECHNIQUE: 2D digital imaging was performed. COMPARISON: XR CHEST 2V PA LATERAL from 04/13/2019 FINDINGS: The heart is not enlarged. The lungs are clear and well expanded. No pleural effusion seen. Mediastin al contours appear intact. IMPRESSION: Normal chest
== END 2019-06-11 09:32 ==
PROVIDERS: PCP Nurse Practitioner Family; Visit Provider Family Medicine
DX: R05 Cough (principal)
CPT/HCPCS: 71046

== ENCOUNTER 2019-06-11 11:14 | Outpatient (REF) | payer MEDICAID, SELFPAY ==
[2019-06-14 16:35] LABS: COVID-19 RT-PCR Result Not Detected (NotDetected)
== END 2019-06-11 11:34 ==
LOC: NCHCN 11:14
PROVIDERS: PCP Nurse Practitioner Family; Visit Provider Nurse Practitioner Family
DX: Z20.828 Contact with and (suspected) exposure to other viral communicable diseases (principal); R50.9 Fever, unspecified
CPT/HCPCS: U0003

== ENCOUNTER 2020-04-24 16:12 | Outpatient (REF) | payer MEDICAID, SELFPAY ==
[2020-04-26 12:45] LABS: COVID-19 RT-PCR UVMMC Result Negative (Negative)
== END 2020-04-24 16:32 ==
LOC: NCHCN 16:12
PROVIDERS: PCP Nurse Practitioner Family; Visit Provider Internal Medicine
DX: Z11.52 Encounter for screening for COVID-19 (principal)
CPT/HCPCS: U0003

== ENCOUNTER 2020-05-09 01:29 | Emergency (ER) | payer MEDICAID, SELFPAY ==
[2020-05-09 01:40] VITALS: BP 129/74; PULSE 97; RESP 15; TEMP 36.6; O2SAT 99
--- NOTE | 2020-05-09 01:45 | DI.RAD_ITS ---
EXAM: XR CHEST 2V PA LATERAL CLINICAL HISTORY: shortness of breath TECHNIQUE: 2D digital imaging was performed. COMPARISON: CR XR CHEST 2V PA LATERAL from 06/11/2019 FINDINGS: The heart is not enlarged. The lungs are clear and well expanded. No pleural effusion seen. Mediastin al contours appear intact. IMPRESSION: Normal chest. RADIATION DOSE DELIVERED: Total DLP
--- NOTE | 2020-05-09 01:45 | RT.EKG_ITS ---
APPROVED REPORT Exam: Resting ECG Patient Location: E HR:87 bpm ECG Measurements Heart Rate 87 AXIS AR 172 P 61 QRSd 92 QRS 9 QT 373 T 28 QTc 448 Conclusion Sinus rhythm...normal P axis, V-rate 60- 99
--- NOTE | 2020-05-09 02:02 | ED.GENADUL_ITS ---
Discharge Plan Disposition Patient Disposition: HOME Condition: Stable Discharge Details Clinical Impression: Shortness of breath Primary Care Provider: Ina Valverde ED Provider: Dwayne Roman Home Meds and New Rx's Prescriptions: Continued multivitamin Tablet 1 tab PO DAILY RF: 0 cholecalciferol (vitamin D3) [Vitamin D3] 1,000 unit Capsule 1 tab PO DAILY RF: 0 ibuprofen 200 mg Capsule 800 mg PO BID PRN (Reason: fever or pain) Qty: 0 RF: 0 Discharge Instructions Instructions: Dyspnea (ED) Additional Instructions: your chest xray, ekg, ultrasound and exam did not show any concerning findings follow up with your primary care provider as soon as possible if you feel more ill, have worsening shortness of breath or chest pain return to the emergency department Medical Decision Making 24 yo female with hx of asperger's, hypothyroidism, who comes in with complaints of cough and shortness of breath for 3 days similar to when she has had pneumonia per patient in the past and also notes mild sharp anterior chest pain when laying flat. Denies fevers, chills, abdominal pain, rashes, travel. She denies smoking or drug use. She is speaking in full sentences without distress on the phone. Has clear lung sounds and no murmurs on exam. No jvd, no leg swelling and no calf tenderness. On bedside u/s has no pericardial effusion with normal appearing EF and no dilated rv. Suspect uri less likely pneumonia but will obtain xray. Her heart score is 0 and pain only when laying flat so doubt acs. Has no jvd, pitting edema and has clear lungs so doubt cardiomyopathy. Wells low and perc negative so do not feel workup for PE indicated. pt continues to have normal vital signs and is in the bed no distress speaking in full sentences and appears well. Xray and ecg unremarkable. Suspect possible viral uri vs allergies given lack of significant exam findings or vital sign abnormalities, will d/c and advised to f/u with pcp [facility] and return precautions given Differential Diagnosis Differential Diagnosis: pneumonia, uri, pericarditis Medical Records Medical records reviewed: Yes I reviewed the patient's medical records. ECG Data Attestation: I personally reviewed and interpreted this ECG (s) as follows: Prior ECG tracings: not available for review Interpretation: sinus rhthm, rate of 87, pr [address] t wave ischemic findings HPI General Mode of arrival: ambulatory . Date/Time Provider Initiated Documentation: 05/09/20 01:33 . Limitations to Documentation: no limitations . Information obtained by: patient . History of Present Illness 24 year old F presents to the emergency department with the chief complaint of short of breath, described as mild, Patient started experiencing this day(s) (3) and it has been constant. No relieving factors improve symptom(s), No exacerbating factors reported . Patient did receive the following treatments prior to arrival, none Related Data Home Medications Medication Instructions Recorded Confirmed cholecalciferol (vitamin D3) 1 tab PO DAILY 12/25/17 05/09/20 [Vitamin D3] multivitamin 1 tab PO DAILY 12/25/17 05/09/20 ibuprofen 800 mg PO BID PRN #0 cap 12/28/17 05/09/20 Previous Rx's Medication Instructions Recorded ibuprofen 800 mg PO BID PRN #0 cap 12/28/17 Allergies Allergy/AdvReac Type Severity Reaction Status Date / Time aspirin Allergy Severe Anaphylaxsi Unverified 05/09/20 01:44 s Penicillins Allergy Severe Unverified 05/09/20 01:44 lamotrigine [From Lamictal] Allergy Intermediate Unverified 05/09/20 01:44 General Stated Complaint: Chest/Rib MENDY: 3 Review of Systems All systems reviewed & are unremarkable except as noted in HPI and below Constitutional Constitutional: Denies chills, Denies fever(s) and Denies weakness Gastrointestinal Gastrointestinal: Denies abdominal pain, Denies nausea and Denies vomiting Musculoskeletal Musculoskeletal: Denies joint swelling Neurologic Neurologic: Denies weakness [facility] Medical History (Updated 05/09/20 @ 02:26 by Dwayne Roman MD) Asperger's disorder Asperger's disorder (11/11/12) Cognitive developmental delay Epilepsy Epilepsy generalized, idiopathic +/- focal +/- psychogenic Hypoglycemia Hypothyroidism Lesion of brain bifrontal hetertopias Memory impairment Meningitis Migraine headache without aura Seizure Surgical History section Family History Brother Seizure Daughter Seizure Mother Seizure Multiple sclerosis Ovarian cancer Cervical cancer Sister Seizure Maternal Uncle Seizure Other Bladder cancer Diabetes Social History Smoking/Tobacco Use Status: Never Smoking risk assessment performed?: Yes Alcohol Intake: current Alcohol Intake frequency: holidays/special occasions only Drug use: Never Substance use type: does not use Household members: family Housing: house Number of Children: 1 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 She has had a seizure disorder since age 2 through age 17 then after childbirth had no seizures off all meds until 2018. She smokes occasionally and drinks very rarely once or twice a month. No drugs of abuse. She is and has a 4-year-old daughter. Exam Const General: no acute distress Orientation: alert HENMT Head: normal to inspection Ears: external ears normal General nose exam: external nose normal Mouth: moist mucous membranes Eyes General: appearance normal, both eyes and all related structures Neck Neck: normal visual inspection Resp Effort & Inspection: normal respiratory effort and able to speak in complete sentences Cardio Rate: regular rate Skin General skin exam: no rashes or lesions noted Neuro General: patient alert and patient oriented x3 Extrem General: normal to inspection Psych Mental Status: mental status grossly normal Course Vital Signs Vital signs: Vital Signs Temperature 36.6 C 05/09/20 01:40 Pulse 97 H 05/09/20 01:40 Respiratory Rate 15 05/09/20 01:40 Blood Pressure 129/74 05/09/20 01:40 Pulse Oximetry 99 05/09/20 01:40 Temperature 36.6 C 05/09/20 01:40 Temperature Source Tympanic 05/09/20 01:40 Pulse 97 H 05/09/20 01:40 Respiratory Rate 15 05/09/20 01:40 Respiratory Effort Non-Labored 05/09/20 01:56 Respiratory Depth Normal 05/09/20 01:56 Respiratory Pattern Normal 05/09/20 01:56 Blood Pressure 129/74 05/09/20 01:40 Blood Pressure Position Sitting 05/09/20 01:40 Pulse Oximetry 99 05/09/20 01:40 Oxygen Delivery Method Room Air 05/09/20 01:40 Oxygen Flow Rate 0 05/09/20 01:40 Pain Level 8 05/09/20 01:40
--- NOTE | 2020-05-09 02:21 | DI.VRAD_ITS ---
PROCEDURE INFORMATION: Exam: XR Chest, 2 Views Exam date and time: 05/09/2020 2:01 AM Age: 24 years old Clinical indication: Shortness of breath; Patient HX: SOB TECHNIQUE: Imaging protocol: XR of the chest Views: 2 views. COMPARISON: CR XR CHEST 2V PA LATERAL 06/11/2019 9:20 AM FINDINGS: Lungs: Unremarkable. No consolidation. Pleural spaces: Unremarkable. No pleural effusion. No pneumothorax. Heart/Mediastinum: Unremarkable. No cardiomegaly. Bones/joints: Unremarkable. IMPRESSION: No acute findings. Dictated and Authenticated by: Stalin Maloney MD. Ordering:KUNAL Rice MD
== END 2020-05-09 02:35 | disposition home or self-care (01) ==
LOC: ER 02:41
PROVIDERS: Emergency Provider Emergency Medicine; PCP Nurse Practitioner Family
DX: R06.02 Shortness of breath (principal)
CPT/HCPCS: 93005; 99284; 71046; 93010; 99283

== ENCOUNTER 2020-05-11 18:40 | Outpatient (REF) | payer MEDICAID, SELFPAY ==
[2020-05-13 13:53] LABS: COVID-19 RT-PCR UVMMC Result Negative (Negative)
== END 2020-05-11 18:41 | disposition home or self-care (01) ==
LOC: NCHCN 18:40
PROVIDERS: PCP Nurse Practitioner Family; Visit Provider Family Medicine
DX: R07.1 Chest pain on breathing (principal)
CPT/HCPCS: U0003

== ENCOUNTER 2020-10-21 18:29 | Emergency (ER) | payer MEDICAID, SELFPAY ==
--- NOTE | 2020-10-21 18:30 | RT.EKG_ITS ---
APPROVED REPORT Exam: Resting ECG Reason for Exam: chest pain Patient Location: E HR:82 bpm ECG Measurements Heart Rate 82 AXIS W[place] 159 P 55 QRSd 89 QRS 18 QT 385 T 30 QTc 450 Conclusion Sinus rhythm...normal P axis, V-rate 60- 99. No STEMI. I have reviewed and interpreted ECG and agree with software generated interpretation.
[2020-10-21 18:37] VITALS: BP 133/86; PULSE 93; RESP 15; TEMP 36.9; O2SAT 98
--- NOTE | 2020-10-21 18:46 | W.ED.GENAD ---
Discharge Plan Disposition Patient Disposition: HOME Condition: Improving Discharge Details Clinical Impression: Acute bronchitis Primary Care Provider: Ina Valverde ED Provider: Jina Neal Home Meds and New Rx's Prescriptions: New prednisone 20 mg tablet See Rx Instructions .ROUTE .COMPLEX Qty: 6 RF: 0 benzonatate [Tessalon Perles] 100 mg capsule 100 mg PO TID PRN (Reason: cough) Qty: 14 RF: 0 Discharge Instructions Instructions: Acute Bronchitis (ED) Additional Instructions: Drink plenty of fluids and get plenty of rest. Take the Robitussin cough medication as needed and directed. Use the albuterol inhaler as needed and directed for shortness of breath or cough. Your prescriptions have been sent electronically to your pharmacy. Call the pharmacy to make sure your prescriptions are ready before pickup. Take the prescriptions as directed. Follow-up with your primary care doctor in 1 week. Return to the emergency department with any worsening or new concerning symptoms. Discharge Data Discharge Date/Time-TO BE ENTERED AT DEPARTURE: 10/21/20 20:35 Discharge Physician: Jina Neal Medical Decision Making 24-year-old female with a history of cognitive development delay, Asperger's disorder, hypothyroidism, seizures presents for dry cough, shortness of breath and chest pain and sore throat that occurs with coughing for the past week. She appears comfortable and in no acute distress. She is afebrile. Oxygen saturation 100% on room air. She has slightly diminished breath sounds in the right chest but no wheezing or rhonchi. Normal ENT exam. Differential diagnosis includes viral syndrome, acute bronchitis, pneumonia, etc. History and presentation does not appear c/w PE, ACS, dissection. EKG obtained shortly after arrival and unremarkable. Chest x-ray reviewed and negative. Patient reassessed and she feels better. Breath sounds improved throughout. Oxygen saturation 100%. Discussed with patient that this is likely viral in nature. Will cover with steroids, albuterol and cough medication. Do not see an indication for antibiotics. She is advised to follow-up with her primary care doctor for reevaluation and if she develops fever or sputum, may need to start antibiotics. Usual and customary return precautions given prior to discharge. Medical Records Medical records reviewed: Yes I reviewed the patient's medical records. Imaging Data Radiologic Study: Radiologist's impression: XR Chest Exam date and time: 10/21/2020 7:05 PM Age: 24 years old Clinical indication: Other: Cough, shortness of breath, R/O acute disease TECHNIQUE: Imaging protocol: XR of the chest. Views: 2 views. COMPARISON: CR XR CHEST 2V PA LATERAL 05/09/2020 1:51 AM FINDINGS: Lungs: Unremarkable. No consolidation. Pleural spaces: Unremarkable. No pleural effusion. No pneumothorax. Heart/Mediastinum: Unremarkable. No cardiomegaly. Bones/joints: Unremarkable. IMPRESSION: No acute findings. ECG Data Attestation: I personally reviewed and interpreted this ECG (s) as follows: Interpretation: rate of 82, sinus, no STEMI, IL 159, QTC 450. HPI General Mode of arrival: ambulatory. Date/Time Provider Initiated Documentation: 10/21/20 18:31. Limitations to Documentation: no limitations. Information obtained by: patient. HPI Narrative: Patient is a 24-year-old female with a history of cognitive developmental delay, Asperger's disorder, seizures who presents for dry cough, anterior chest pain or shortness of breath over the past week. She states her symptoms started with a dry cough and then progressed with shortness of breath and chest pain with coughing. She is also complaining of sore throat with coughing. She is able to eat and drink and denies any pain with swallowing. She denies any known fever. She states she has had diminished appetite this week. Related Data Home Medications Medication Instructions Recorded Confirmed benzonatate [Tessalon Perles] 100 mg PO TID PRN #14 cap 10/21/20 prednisone See Rx Instructions .ROUTE 10/21/20 .COMPLEX #6 tab Previous Rx's Medication Instructions Recorded benzonatate [Tessalon Perles] 100 mg PO TID PRN #14 cap 10/21/20 prednisone See Rx Instructions .ROUTE 10/21/20 .COMPLEX #6 tab Allergies Allergy/AdvReac Type Severity Reaction Status Date / Time aspirin Allergy Severe Anaphylaxsi Unverified 10/21/20 19:13 s Penicillins Allergy Severe Unverified 10/21/20 19:13 lamotrigine [From Lamictal] Allergy Intermediate Unverified 10/21/20 19:13 General Stated Complaint: Chest Pain MENDY: 3 Review of Systems All systems reviewed & are unremarkable except as noted in HPI and below Constitutional Constitutional: Reports as per HPI, Denies chills and Denies fever(s) Eyes Eyes: Denies blurry vision ENT Ears, Nose, Mouth, and Throat: Denies dizziness, Denies sore throat and Denies throat swelling Cardiovascular Cardiovascular: Denies chest pain and Denies dyspnea Respiratory Respiratory: Denies cough and Denies dyspnea Gastrointestinal Gastrointestinal: Denies abdominal pain, Denies diarrhea and Denies vomiting Genitourinary Genitourinary: Denies hematuria and Denies dysuria Musculoskeletal Musculoskeletal: Denies back pain and Denies numbness Integumentary/Breasts Skin/Breast: Denies lesions and Denies rash Neurologic Neurologic: Denies dizziness, Denies localized weakness and Denies numbness Allergic/Immunologic Allergic/Immunologic: Denies throat swelling [facility] Medical History (Updated 10/21/20 @ 20:11 by Jina Neal DO) Asperger's disorder Asperger's disorder (11/11/12) Cognitive developmental delay Epilepsy Epilepsy generalized, idiopathic +/- focal +/- psychogenic Hypoglycemia Hypothyroidism Lesion of brain bifrontal hetertopias Memory impairment Meningitis Migraine headache without aura Seizure Surgical History section Family History Brother Seizure Daughter Seizure Mother Seizure Multiple sclerosis Ovarian cancer Cervical cancer Sister Seizure Maternal Uncle Seizure Other Bladder cancer Diabetes Social History Smoking/Tobacco Use Status: Never Smoking risk assessment performed?: Yes Alcohol Intake: current Alcohol Intake frequency: holidays/special occasions only Drug use: Never Substance use type: does not use Household members: family Housing: house Number of Children: 1 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 She has had a seizure disorder since age 2 through age 17 then after childbirth had no seizures off all meds until 2018. She smokes occasionally and drinks very rarely once or twice a month. No drugs of abuse. She is and has a 4-year-old daughter. Exam Const General: cooperative, healthy appearing and no acute distress HENMT Head: normal to inspection Ears: hearing grossly normal bilaterally, external ears normal and TM's normal bilaterally Face and sinus: normal facial exam Mouth: oral mucosae normal Throat: posterior oropharynx normal Eyes General: appearance normal, both eyes and all related structures Pupils: PERRL EOM: EOM intact bilaterally Neck Neck: normal visual inspection and No submandibular swelling Lymphatic: no lymphadenopathy noted Chest Chest: normal inspection of the chest and no tenderness Resp Effort & Inspection: normal respiratory effort and able to speak in complete sentences Auscultation: diminished lung sounds on the right throughout Cardio Rate: regular rate Rhythm: regular rhythm GI Inspection: normal to inspection Palpation: soft, not firm, not rigid and nontender Auscultation: normal bowel sounds Skin General skin exam: no rashes or lesions noted Neuro General: patient alert, patient awake and patient oriented x3 Cognition: normal cognition Speech: speech normal Motor: muscle tone normal throughout Sensory Exam: no sensory deficits noted Extrem General: normal to inspection, full ROM, capillary refill normal, no calf tenderness bilaterally and no edema Psych Appearance: grossly normal Mental Status: mental status grossly normal Speech and Movement: speech and movement normal Affect: normal affect Course Vital Signs Vital signs: Vital Signs Temperature 98.5 F 10/21/20 18:37 Pulse 93 H 10/21/20 18:37 Respiratory Rate 15 10/21/20 18:37 Blood Pressure 133/86 10/21/20 18:37 Pulse Oximetry 98 10/21/20 18:37 Temperature 98.5 F 10/21/20 18:37 Temperature Source Oral 10/21/20 18:37 Pulse 93 H 10/21/20 18:37 Respiratory Rate 15 10/21/20 18:37 Blood Pressure 133/86 10/21/20 18:37 Pulse Oximetry 98 10/21/20 18:37 Oxygen Delivery Method Room Air 10/21/20 18:37 Oxygen Flow Rate 0 10/21/20 18:37 Pain Level 8 10/21/20 18:37
--- NOTE | 2020-10-21 19:00 | DI.RAD_ITS ---
Exam(s) XR CHEST 2V PA LATERAL EXAM: XR CHEST 2V PA LATERAL CLINICAL HISTORY: cough, shortness of breath, r/o acute disease TECHNIQUE: 2D digital imaging was performed. COMPARISON: CR,XR XR CHEST 2V PA LATERAL from 05/09/2020 FINDINGS: The heart is not enlarged. The lungs are clear and well expanded. No pleural effusion seen. Mediastin al contours appear intact. IMPRESSION: Normal chest. RADIATION DOSE DELIVERED: Total DLP
[2020-10-21] MEDS: Ketorolac 60 MG/2 ML VIAL IM (19:18)
[2020-10-21 19:36] VITALS: RESP 8
[2020-10-21] MEDS: Albuterol/Ipratropium 3 ML UPD VIAL UPD (19:36)
[2020-10-21 19:54] VITALS: BP 128/64; PULSE 106; RESP 18; O2SAT 100
--- NOTE | 2020-10-21 19:54 | DI.VRAD_ITS ---
PROCEDURE INFORMATION: Exam: XR Chest Exam date and time: 10/21/2020 7:05 PM Age: 24 years old Clinical indication: Other: Cough, shortness of breath, R/O acute disease TECHNIQUE: Imaging protocol: XR of the chest. Views: 2 views. COMPARISON: CR XR CHEST 2V PA LATERAL 05/09/2020 1:51 AM FINDINGS: Lungs: Unremarkable. No consolidation. Pleural spaces: Unremarkable. No pleural effusion. No pneumothorax. Heart/Mediastinum: Unremarkable. No cardiomegaly. Bones/joints: Unremarkable. IMPRESSION: No acute findings. Dictated and Authenticated by: Dusty Zhu MD. Ordering:ROSA Muro MD
--- NOTE | 2020-10-21 20:01 | NUR.NOTE ---
report to SVITLANA Tim
[2020-10-21 20:05] VITALS: BP 129/70; PULSE 109; RESP 18; O2SAT 100
[2020-10-21 20:06] VITALS: RESP 1
[2020-10-21 20:20] VITALS: BP 131/65; PULSE 113; RESP 18; O2SAT 99
[2020-10-21] MEDS: predniSONE 20 MG TAB 40 MG PO (20:28)
[2020-10-21] MEDS: Albuterol HFA 8 GM 60 PUFF INH IH (20:28)
[2020-10-21] MEDS: guaiFENesin/CODEINE PHOSPHATE 10 ML CUP 20 ML PO (20:32)
== END 2020-10-21 20:35 | disposition home or self-care (01) ==
PROVIDERS: Emergency Provider Physician Assistant; PCP Nurse Practitioner Family
DX: J20.9 Acute bronchitis, unspecified (principal); R06.02 Shortness of breath; R07.9 Chest pain, unspecified
CPT/HCPCS: 81025; 93005; 94640; 96372; 99284; 71046; 93010; 99283; J1885; J7512; J7620

== ENCOUNTER 2020-11-07 22:54 | Outpatient (REF) | payer MEDICAID, SELFPAY ==
[2020-11-07 15:24] LABS: Abs Immature Grans 0.07 10^3/uL (0.0-0.06); Absolute Basophil Count 0.07 10^3/uL (0.0-0.2); Absolute Eosinophil Count 0.29 10^3/uL (0.0-0.7); Absolute Lymphocyte Count 2.38 10^3/uL (1.2-3.4); Absolute Monocyte Count 0.65 10^3/uL (0.1-0.8); Absolute Neutrophil Count 4.97 10^3/uL (1.2-6.7); Basophils % 0.8; Eosinophils % 3.4; HGB 12.9 g/dL (11.2-15.7); Immature Grans % 0.8; Lymphocytes % 28.2; MCHC 31.5 % (32.0-36.0); MCV 95.3 fL (80-95); MPV 10.2 fL (8.0-11.0); Monocytes % 7.7; Neutrophils % 59.1; Nucleated RBC 0 %; Platelet Count 334 10^3/uL (130-400); RDW 12.1 % (11.7-14.6); RDW-SD 42.5 fL; WBC 8.43 10^3/uL (4.4-10.8)
[2020-11-07 15:26] LABS: ESR 28 mm/hr (0-20)
[2020-11-07 16:13] LABS: ALT 28 U/L (14-59); AST 16 U/L (15-37); Albumin 4.3 g/dL (3.4-5.0); Alkaline Phosphatase 78 U/L (46-116); Anion Gap 7.9 mmol/L (3-11); BUN 8 mg/dL (7-18); Bilirubin, Total 0.3 mg/dL (0.2-1.0); C-Reactive Protein 0.34 mg/dL (0.0-0.3); CO2 29.1 mmol/L (21.0-32.0); CREATININE 0.8 mg/dL (0.55-1.02); Calcium 9.7 mg/dL (8.5-10.1); Chloride 105 mmol/L (98-107); Glucose 120 mg/dL (74-106); Potassium 4.2 mmol/L (3.5-5.1); Sodium 142 mmol/L (136-145); Total Protein 7.8 g/dL (6.4-8.2)
[2020-11-08 15:09] LABS: ANA Interpretation Negative (Negative)
== END 2020-11-07 22:55 | disposition home or self-care (01) ==
LOC: NCHCN 22:54
PROVIDERS: PCP Nurse Practitioner Family; Visit Provider Nurse Practitioner Family
DX: R06.02 Shortness of breath (principal); M79.18 Myalgia, other site; M45.9 Ankylosing spondylitis of unspecified sites in spine; M25.59 Pain in other specified joint; M46.1 Sacroiliitis, not elsewhere classified; M54.5 Low back pain; R56.9 Unspecified convulsions
CPT/HCPCS: 80053; 85652; 85025; 86038; 86140

== ENCOUNTER 2020-11-15 03:07 | Outpatient (CLI) | payer MEDICAID, SELFPAY ==
[2020-11-15] MEDS: Albuterol HFA 18 GM 200 PUFF INH IH (14:01)
[2020-11-15] MEDS: Inhaler, Assist Device 1 EACH MC (14:02)
--- NOTE | 2020-11-15 14:48 | W.PFT ---
Date of service: 11/15/20 Time of Service: 12:58 Pulmonary Function Test Result Requesting Provider Ina Valverde Interpretation Spirometry: There is no airflow limitation. There is no significant bronchodilator response. There is a blunted inspiratory loop on the flow volume loop. Lung Volumes: Lung volumes are normal Diffusion Capacity: Diffusion is normal Airway Pressure: Airways resistance is borderline increased. Impression Normal pulmonary function testing with a blunted inspiratory loop on the flow volume loop may indicate vocal cord dysfunction in the correct clinical context. Clinical Correlation therefore is recommended.
== END 2020-11-15 03:08 | disposition home or self-care (01) ==
LOC: RT 03:07
PROVIDERS: PCP Nurse Practitioner Family; Visit Provider Nurse Practitioner Family
DX: R06.02 Shortness of breath (principal)
CPT/HCPCS: 94060; 94726; 94729

== ENCOUNTER 2021-01-27 12:31 | Emergency (ER) | payer MEDICAID, SELFPAY ==
[2021-01-27 12:39] VITALS: BP 142/79; PULSE 105; RESP 20; TEMP 36.9; O2SAT 99
[2021-01-27 12:45] LABS: Bilirubin Negative (Negative); Blood Negative (Negative); Clarity Clear (Clear); Glucose Negative (Negative); Ketones Negative (Negative); Leukocyte Esterase Negative (Negative); Nitrite Negative (Negative); Urobilinogen 0.2 EU/dL (Up TO 0.2)
--- NOTE | 2021-01-27 12:53 | ED.GENADUL_ITS ---
Discharge Plan Disposition Patient Disposition: HOME Condition: Stable Discharge Details Clinical Impression: Dysuria Primary Care Provider: Ina Valverde ED Provider: Dwayne Roman Home Meds and New Rx's Prescriptions: No Action No Known Home Meds RF: 0 Discharge Instructions Instructions: Dysuria (ED) Additional Instructions: your urine test today did not show evidence of infection if your culture grows a bacteria you will be notified if you still have symptoms this week follow up with your primary care provider you can take over the counter azo and ibuprofen if you feel more ill, have severe abdominal pain or back pain, or fevers return to the emergency department Medical Decision Making 25 yo female comes in with complaints of burning at the end of urination and increased frequency of urination. She denies fevers, chills, back pain, abdominal pain, n/v, vaginal discharge or bleeding. She is in no distress on exam. She has no abdominal tenderness or back tenderness, no cva tenderness. Her UA is unremarkable, culture ordered. given lack of vaginal discharge and symptoms only with urinating do not feel pelvic exam indicated. She will f/u with pcp and return precautions given Differential Diagnosis Differential Diagnosis: uti, cystitis, uretheritis Lab Data Lab results reviewed: Yes I reviewed the patient's lab results. HPI General Mode of arrival: ambulatory . Date/Time Provider Initiated Documentation: 01/27/21 12:32 . Limitations to Documentation: no limitations . Information obtained by: patient . History of Present Illness 25 year old F presents to the emergency department with the chief complaint of salazar when she urinates, described as moderate, Patient started experiencing this day(s) (2) and it has been intermittent. No relieving factors improve symptom(s), No exacerbating factors reported . Patient notes no other symptoms.. Patient did receive the following treatments prior to arrival, none Related Data Home Medications Medication Instructions Recorded Confirmed Unknown [No Known Home Meds] 01/27/21 01/27/21 Allergies Allergy/AdvReac Type Severity Reaction Status Date / Time aspirin Allergy Severe Anaphylaxsi Unverified 10/21/20 19:13 s Penicillins Allergy Severe Unverified 10/21/20 19:13 lamotrigine [From Lamictal] Allergy Intermediate Unverified 10/21/20 19:13 General Stated Complaint: Urinary MENDY: 4 Review of Systems All systems reviewed & are unremarkable except as noted in HPI and below Constitutional Constitutional: Denies chills, Denies fever(s) and Denies weakness Cardiovascular Cardiovascular: Denies chest pain and Denies dyspnea Respiratory Respiratory: Denies cough and Denies dyspnea Gastrointestinal Gastrointestinal: Denies abdominal pain, Denies nausea and Denies vomiting Musculoskeletal Musculoskeletal: Denies joint swelling Neurologic Neurologic: Denies weakness Psychiatric Psychiatric: Denies depression [facility] Medical History (Updated 01/27/21 @ 12:55 by Dwayne Roman MD) Ankylosing spondylitis Asperger's disorder Asperger's disorder (11/11/12) Cognitive developmental delay Costochondritis Epilepsy Epilepsy generalized, idiopathic +/- focal +/- psychogenic Hypoglycemia Hypothyroidism Lesion of brain bifrontal hetertopias Memory impairment Meningitis Migraine headache without aura Placental abruption Sacroiliitis Scoliosis Seizure Surgical History section Family History Brother Seizure Daughter Seizure Mother Seizure Multiple sclerosis Ovarian cancer Cervical cancer Sister Seizure Maternal Uncle Seizure Other Bladder cancer Diabetes Social History Smoking/Tobacco Use Status: Never Smoking risk assessment performed?: Yes Alcohol Intake: current Alcohol Intake frequency: holidays/special occasions only Drug use: Never Substance use type: does not use Household members: family Housing: house Number of Children: 1 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 Do you feel safe at home: Yes Do you feel safe in your relationship?: Yes Additional Social history: She was born in [place]. She has had a seizure disorder since age 2 through age 17 then after childbirth had no seizures off all meds until 2018. She smokes occasionally and drinks very rarely once or twice a month. No drugs of abuse. She is and has a 4-year-old daughter. Exam Const General: no acute distress Orientation: alert HENMT Head: normal to inspection Ears: external ears normal General nose exam: external nose normal Mouth: moist mucous membranes Eyes General: appearance normal, both eyes and all related structures Neck Neck: normal visual inspection Resp Effort & Inspection: normal respiratory effort and able to speak in complete sentences Cardio Rate: regular rate GI Palpation: soft and nontender Back/Spine/Pelvis Back: no CVA tenderness Skin General skin exam: no rashes or lesions noted Neuro General: patient alert and patient oriented x3 Extrem General: normal to inspection Psych Mental Status: mental status grossly normal Course Vital Signs Vital signs: Vital Signs Temperature 36.9 C 01/27/21 12:39 Pulse 105 H 01/27/21 12:39 Respiratory Rate 20 01/27/21 12:39 Blood Pressure 142/79 H 01/27/21 12:39 Pulse Oximetry 99 01/27/21 12:39 Temperature 36.9 C 01/27/21 12:39 Temperature Source Temporal Artery Scan 01/27/21 12:39 Pulse 105 H 01/27/21 12:39 Respiratory Rate 20 01/27/21 12:39 Respiratory Effort Non-Labored 01/27/21 12:41 Blood Pressure 142/79 H 01/27/21 12:39 Blood Pressure Position Sitting 01/27/21 12:39 Pulse Oximetry 99 01/27/21 12:39 Oxygen Delivery Method Room Air 01/27/21 12:39 Oxygen Flow Rate 0 01/27/21 12:39 Pain Level 7 01/27/21 12:42 Lab/Test Results Lab/Test Results: 01/27/21 12:36 Urine - Clean Catch Urine Culture - Pending Laboratory Tests Range/Units 01/27/21 12:36 Urine Color (Yellow) Yellow Urine Clarity (Clear) Clear Urine pH (5-8) 6.0 Ur Specific [place] (1.005-1.025) 1.010 Urine Protein (Negative) mg/dL Negative Urine Ketones (Negative) mg/dL Negative Urine Blood (Negative) Negative Urine Nitrite (Negative) Negative Urine Bilirubin (Negative) Negative Urine Urobilinogen (Up TO 0.2) EU/dL 0.2 Ur Leukocyte Esterase (Negative) Negative Urine Glucose (Negative) mg/dL Negative POC- Test(urine) Negative
== END 2021-01-27 13:02 | disposition home or self-care (01) ==
PROVIDERS: Emergency Provider Emergency Medicine; PCP Nurse Practitioner Family
DX: R30.0 Dysuria (principal); R35.0 Frequency of micturition
CPT/HCPCS: 81025; 99282; 81003; 87086; 99283

== ENCOUNTER 2024-11-30 08:19 | Outpatient (CLI) | payer BC, SELFPAY ==
[2024-11-30 14:18] LABS: Hemoglobin A1C 5.7 % (<5.7)
[2024-11-30 14:45] LABS: Calculated LDL 83 mg/dL (<100); Cholesterol 140 mg/dL (<200); HDL Cholesterol 39 mg/dL (>or=50); Triglyceride 94 mg/dL (<150)
== END 2024-11-30 08:20 | disposition home or self-care (01) ==
PROVIDERS: PCP Nurse Practitioner Family; Visit Provider Nurse Practitioner Family
DX: Z00.00 Encounter for general adult medical examination without abnormal findings (principal)
CPT/HCPCS: 36415; 80061; 83036

== ENCOUNTER 2024-11-30 18:04 | Outpatient (REF) | payer BC, SELFPAY ==
--- NOTE | 2024-11-30 12:30 | PAPFT_PTH ---
PATIENT: Tracy Morris LOC: [facility]#:[id number] AGE/SX: 28/F ROOM: RE11/30/[address]: Ina Valverde : 1995 BED: DIS: 11/30/2024 SPEC #: [id number] RECD: 12/01/24 13:00 STATUS: BRANDIE HUDSON #: [id number] CHUYITA: 11/30/24 12:[address]: Ina Valverde DEPT: [facility] Cytology RECD BY: Alejandra Perez Tissues: 1 - CX/ENDOCX FOR PAP SMEARS Procedures: PAP THIN PREP/UVM Screening HPV DNA PROBE Comments: [id number] (HPV 16 & 18/45)
== END 2024-11-30 18:05 | disposition home or self-care (01) ==
LOC: NCHCN 18:04
PROVIDERS: PCP Nurse Practitioner Family; Visit Provider Nurse Practitioner Family
DX: Z12.4 Encounter for screening for malignant neoplasm of cervix (principal)
CPT/HCPCS: 88142; 87624